=== PATIENT | female | born 1945 | race Caucasian/White ===

== ENCOUNTER 2016-11-28 13:47 | Inpatient (IN) | payer OTHER, BC ==
--- NOTE | 2016-11-28 13:54 | PDOC ---
History of Present Illness - General Chief Complaint: Weakness Stated Complaint: weak,dehydration Time Seen by Provider: 11/28/16 13:48 History Source: Patient, EMS Exam Limitations: No Limitations, Language Barrier - History of Present Illness Initial Comments: 11/28/16 13:49 The patient is a 71-year-old female, with a significant past medical history of cervical cancer (status post TAHBSO, with radiation and chemotherapy approximately 35 years ago at [facility], apparently in remission according to the patient), right sided urostomy in place (placed in 2009 secondary to radiation injury), who presents to the emergency department complaining of generalized weakness. She states that for the past year, she has had relatively frequent episodes of dehydration and diarrhea. She states that this has been extensively worked up at [facility], and she was found to have "two benign tumors in her abdomen" and was told that these are the cause of her episodes. She specifically states that recurrent malignancy was excluded. She had another episode approximately a week ago, and was admitted to [facility] for "dehydration." She was discharged on Wednesday. Since that time, she states that she has been "too weak to get off the couch." She has been urinating and defecating on a blanket, while on the couch. She denies headache, neck pain, neck stiffness, chest pain, back pain, cough, dyspnea, dyspnea on exertion, orthopnea, lower extremity edema. He denies fever, chills, sweats. She denies nausea, vomiting. She denies any change in her chronic loose stools. She denies urinary frequency, urgency, hesitancy, dysuria. She denies rash. She denies falls or trauma. She states that her daughter assists her at home, but has been unable to get her off the couch. EMS states that they found the patient on the couch, without any evidence of trauma, with a strong smell of urine, and visible feces diffusely on her skin. Past History - Past Medical History Allergies/Adverse Reactions: Allergies Allergy/AdvReac Type Severity Reaction Status Date / Time No Known Allergies Allergy Unverified 01/26/12 08:57 Home Medications: Ambulatory Orders NK [No Known Home Medication] 11/28/16 HTN: Yes Hypercholesterolemia: Yes - Psycho/Social/Smoking Cessation Hx Anxiety: No Suicidal Ideation: No Smoking Status: No Smoking History: Never smoked Number of Cigarettes Smoked Daily: 0 Hx Alcohol Use: No Drug/Substance Use Hx: No Substance Use Type: None Review of Systems - Review of Systems Comments:: 11/28/16 13:53 CONSTITUTIONAL: Present: Generalized weakness Absent: fever, chills, diaphoresis HEENT: Absent: rhinorrhea, nasal congestion, throat pain, throat swelling, difficulty swallowing, mouth swelling, ear pain, eye pain, visual Changes CARDIOVASCULAR: Absent: chest pain, loss of consciousness, palpitations, irregular heart rate, peripheral edema RESPIRATORY: Absent: cough, shortness of breath, dyspnea with exertion, orthopnea, wheezing, stridor, hemoptysis GASTROINTESTINAL: Present: Chronic loose stools Absent: abdominal pain, abdominal distension, nausea, vomiting, constipation, melena, hematochezia GENITOURINARY: Absent: dysuria, frequency, urgency, hesitancy, hematuria, flank pain, genital pain MUSCULOSKELETAL: Absent: myalgia, arthralgia, joint swelling SKIN: Absent: rash, itching, pallor HEMATOLOGIC/IMMUNOLOGIC: Absent: easy bleeding, easy bruising, lymphadenopathy, frequent infections ENDOCRINE: Absent: unexplained weight gain, unexplained weight loss, heat intolerance, cold intolerance NEUROLOGIC: Absent: headache, focal weakness or paresthesias, dizziness, unsteady gait, seizure, mental status changes, bladder or bowel incontinence PSYCHIATRIC: Absent: anxiety, depression, suicidal or homicidal ideation, hallucinations. *Physical Exam - Physical Exam Comments: 11/28/16 13:54 GENERAL: Well developed, well nourished. Awake and alert. No acute distress. There is a strong smell of urine on the patient's clothes. HEENT: Dry mucous membranes Normocephalic, atraumatic. PERRLA, EOMI. No conjunctival pallor. Sclera are non- icteric. Moist mucous membranes. Oropharynx is clear. NECK: Supple. Full ROM. No JVD. Carotid pulses 2+ and symmetric, without bruits. No thyromegaly. No lymphadenopathy. CARDIOVASCULAR: Regular rate and rhythm. No murmurs, rubs, or gallops. Distal pulses are 2+ and symmetric. PULMONARY: No evidence of respiratory distress. Lungs clear to auscultation bilaterally. No wheezing, rales or rhonchi. ABDOMINAL: Soft. Non-tender. Non-distended. No rebound or guarding. No organomegaly. Normoactive bowel sounds. MUSCULOSKELETAL Normal range of motion at all joints. No bony deformities or tenderness. No CVA tenderness. EXTREMITIES: No cyanosis. No clubbing. No edema. No calf tenderness. SKIN: Delayed skin turgor. Feces is present, diffusely, on the patient's skin, including her hands, and underneath her fingernails. Ostomy bag in place right anterior abdomen Warm and dry. Normal capillary refill. No rashes. No jaundice. NEUROLOGICAL: Alert, awake, appropriate. Cranial nerves 2-12 intact. No deficits to light touch and temperature in face, upper extremities and lower extremities. No motor deficits in the in face, upper extremities and lower extremities. Normoreflexic in the upper and lower extremities. Normal speech. Toes are down- going bilaterally. Gait is normal without ataxia. PSYCHIATRIC: Cooperative. Good eye contact. Appropriate mood and affect. 11/28/16 14:37 Heart Score/ECG Review - ECG Intrepretation Comment:: 11/28/16 14:42 Normal sinus rhythm at 96, normal axis, normal intervals, early R-wave progression, flat T-wave in aVL, occasional premature atrial complexes, no ST changes ED Treatment Course - LABORATORY CBC & Chemistry Diagram: 11/28/16 15:25 11/28/16 15:25 Medical Decision Making - Medical Decision Making 11/28/16 13:54 The patient is in no acute distress She has 1 SIRS criteria: Tachycardia She is cachectic Vitals noted Oxygen saturation is likely not accurate, as the left is poor She is not tachypneic She is not dyspneic There is urine and feces present on her clothes and skin She is visibly dehydrated Will initiate sepsis order set 11/28/16 14:57 Chest x-ray emergency Department interpretation: No acute cardiopulmonary disease Labs pending 11/28/16 15:18 Nurses have been unable to obtain IV access The patient refuses to allow me to attempt to place an external jugular vein IV She refuses central line placement in the internal jugular vein or subclavian vein She consents to femoral vein triple-lumen catheter placement I explained the risks and benefits, and she consents 11/28/16 15:30 Left femoral vein cannulated on first attempt Wire will not thread, despite multiple repositionings She refuses further central line placement attempts Nursing has been able to secure peripheral IV access 11/28/16 16:15 CBC noted, with leukocytosis and left shift She now has two SIRS criteria She does not have an obvious source of infection, so does not meet diagnostic criteria for sepsis 11/28/16 16:26 Chemistries noted There is evidence that the patient cannot be adequately cared for at home, and that she will require placement in a shelter We have been unable to contact her daughter I am concerned that she may be incorrect about her lack of cancer history Blood pressure remains low, though I suspect this is her baseline She states that she has "low blood pressure" at baseline, but cannot recall the actual number 11/28/16 17:13 Lactic acid noted, elevated at 3.7 She does not have an obvious source of infection However, given the leukocytosis, and the borderline blood pressure, will treat with broad-spectrum antibiotics Clinical impression: Dehydration Hyponatremia Failure to thrive Hypoalbuminemia Lactic acidosis SIRS Case discussed with daughter, who verifies that the patient does not have active cervical cancer and that the urostomy tube was placed secondary to "radiation damage." She also verifies that the patient is DNR/DNI. She is the durable power of attorney law clerk. She states that her strong [id number] would be that the patient is discharged to home, in her care. She does not want shelter placement. Case discussed in detail with admitting provider including history, physical exam and ancillary studies. Admitting physician has assumed care for the patient, will follow all pending diagnostics and will complete the evaluation and treatment. A portion of this note was documented by scribe services under my direction. I have reviewed the details of the note, within reason, and agree with the documentation with the following case summary and management plan written by me. 11/28/16 17:19 11/28/16 17:24 *DC/Admit/Observation/Transfer Diagnosis at time of Disposition: Dehydration, Hyponatremia, Lactic acidosis, SIRS (systemic inflammatory response syndrome) - Discharge Dispostion Admit: Yes
[2016-11-28] MEDS ORDERED: SODIUM CHLORIDE 1,000 ML IV STA (13:55)
[2016-11-28 15:57] LABS: BASOPHIL 0.3 % (0-2.0); EOSINOPHIL 0.1 % (0-4.5); MCH 24.8 pg (25.7-33.7); MCHC 32.1 g/dl (32.0-36.0); MEAN CELL VOLUME 77.3 fl (80-96); NEUTROPHILS 85.5 % (42.8-82.8); RDW 17.4 % (11.6-15.6); WHITE BLOOD COUNT 14.4 K/mm3 (4.0-10.0)
[2016-11-28 16:05] LABS: ACTIVATED PTT 17.4 SECONDS (24.0-38.9)
[2016-11-28 16:10] LABS: INR 1.27 (0.82-1.09); PROTHROMBIN TIME (PATIENT) 13.8 SEC (10.2-13.0)
[2016-11-28 16:21] LABS: BILIRUBIN,TOTAL 0.5 mg/dl (0.2-1.0); CALCIUM 8.3 mg/dl (8.4-10.2); CREATININE 2.1 mg/dl (0.6-1.3); TOT PROT 6.9 g/dl (6.4-8.3)
[2016-11-28 17:12] LABS: MEAN PLT VOLUME 6.4 fl (7.5-11.1); PLATELET COUNT 664 K/MM3 (134-434); PLATELET ESTIMATE MARKEDLY INCREASED (NORMAL); THYROID STIMULATING HORMONE 2.42 uIU/ml (0.358-3.74)
[2016-11-28] MEDS ORDERED: PIPERACILLIN/TAZOB 4.5 GM 4.5 GM in DEXTROSE 5%-WATER 100 ML IVPB ONE (17:13)
[2016-11-28] MEDS ORDERED: VANCOMYCIN 1,000 MG in DEXTROSE 5%-WATER - 250 ML IVPB ONE (17:13)
[2016-11-28 17:15] LABS: ANISOCYTOSIS 1+; HYPOCHROMIA 1+; MICROCYTOSIS 1+; OVALOCYTES 1+; TEAR DROP CELLS OCC
[2016-11-28] MEDS ORDERED: SODIUM CHLORIDE 1,000 ML IV SCH ×2 (17:15→18:00)
[2016-11-28 17:16] LABS: BURR CELLS 1+; PLATELET COMMENT2 FEW GIANT PLTS
[2016-11-28 18:25] LABS: URINE APPEARANCE Not
[2016-11-28 18:27] LABS: URINE BILIRUBIN Negative (NEGATIVE); URINE BLOOD 2+ (NEGATIVE); URINE COLOR YELLOW; URINE GLUCOSE (UA) Negative (NEGATIVE); URINE KETONE Negative (NEGATIVE); URINE LEUK ESTERASE 3+ (NEGATIVE); URINE NITRITE Negative (NEGATIVE); URINE PROTEIN 3+ (NEGATIVE); URINE UROBILINOGEN 0.2 E.U/dl (0.2-1.0)
--- NOTE | 2016-11-28 19:30 | HP ---
Admitting History and Physical - Admission Chief Complaint: failure to thrive History of Present Illness: The patient is a 71-year-old female, with a significant past medical history of cervical cancer (status post TAHBSO, with radiation and chemotherapy approximately 35 years ago at [facility], apparently in remission according to the patient), right sided urostomy in place (placed in 2009 secondary to radiation injury), who presents to the emergency department complaining of generalized weakness. Pt was brought to [facility] per documentation by daughter who found patient covered in her feces and weak. Pt states she is unsure why she is in the hospital. Patient reports she has been to the hospital several times over the past 2 months and had a recent visit to [facility] 3days ago where she reports getting "Saline" for dehydration. She also reports having poor appetite and unspecified weight loss. She states she has been having seepage of stool for several months and reports being told by her oncologist that it was related to her history of cancer. Per documentation patient states she has had extensive work up at [facility] and recurrent malignancy was ruled out. She denies fevers, chills, nausea, cough, vomiting,. She denies heart palps, chest pain, dizziness, TRAN, abdominal pain. She reports sob with activities which has been ongoing for months. She denies recent travel or sick contacts. PMH/PSH-Hypertension, Hyperlipidemia, Cervical cancer, Vitamin B12 deficiency, R sided urostomy Social: lives with daughter Alexx- unable to obtain secondary to uncooperative Ros negative except for hpi Physical: general- thin, bitemp wasting, hent- sandra, neck supple, trachea midline, no lymphadenopathy, mucous membranes dry resp- no cough, no rales, no wheeze, no accessory muscle use cards- s1s2 heard, no leg edema, extremity pulses +2 skin- no erythema, no rash psych- uncooperative, alert and oriented neuro- cn12-2 grossly intact, alert and oriented x 3, no seizures, no facial droop, speech clear musk- normal arom bue/ble gi- R sided urostomy with clear patria urine in bag, non- tender, no rebound, no guarding Problem list uti sirs criteria sepsis hyponatremia hypoalbuminemia thrombocytosis hyperglycemia anemia weakness failure to thrive lactic acidosis nany on ckd htn hlp imaging: renal us pending cxr negative ekg reviewed a/p 71-year-old female, with a significant past medical history of htn, vitamin b12 deficiency, hlp, cervical cancer (status post TAHBSO, with radiation and chemotherapy approximately 35 years ago at [facility], apparently in remission according to the patient), right sided urostomy in place (placed in 2009 secondary to radiation injury) admitted for eval of their emergent condition. She was transferred from [place] to [facility] for higher LOC. 1. UTI started on broad spectrum abx follow up cultures ID consult 2. Sepsis secondary to uti Found to have 3+ LE, 3 +Protein, 2+ H Lactic acid elevated to 3.7 Fluid resuscitation, broad spec abx Cautious with fluids with diastolic dysfunction grade II Trend lactic acidosis 3. Failure to thrive nutrition evaluation PT evaluation Supportive care 4. Anemia baseline hg appears to hover around 9 Check iron studies, tsh, folate, b12, fobt 5. Thrombocytosis possibly reactive in setting of infection v dehydration appears to have chronic elevation of plt Monitor Plt 6. Hypoalbuminemia Nutritional eval 7. Weakness likely related to #1 8. Hyperglycemia possibly related to infection Monitor BMP Check A1c 9. NANY on CKD baseline appears to be 1.5-1.6 check urine lytes renal us 10. Hyponatremia likely related to volume depletion Appears dehydrated on exam Monitor labs 11. hx htn no home meds noted 12. hx hlp no home meds noted Dvt prophy scds, oob, hep sq FEN NS 75cc/hr cautious with ivf 2/2 diastolic dysfunction dispo- will require > 2mn stay for sepsis. will possibly need SNF placement. History Source: Medical Record - Smoking History Smoking history: Never smoked Have you smoked in the past 12 months: No Aproximately how many cigarettes per day: 0 - Alcohol/Substance Use Hx Alcohol Use: No Home Medications - Allergies Allergies/Adverse Reactions: Allergies Allergy/AdvReac Type Severity Reaction Status Date / Time No Known Allergies Allergy Unverified 01/26/12 08:57 - Home Medications Home Medications: Ambulatory Orders NK [No Known Home Medication] 11/28/16 Physical Examination Vital Signs: Vital Signs Temperature 98.7 F 11/28/16 18:38 Pulse Rate 88 11/28/16 18:38 Respiratory Rate 16 11/28/16 18:38 Blood Pressure 110/76 11/28/16 18:38 O2 Sat by Pulse Oximetry (%) 94 L 11/28/16 18:38 Labs: CBC, BMP 11/28/16 15:25 11/28/16 15:25 Visit type - Emergency Visit Emergency Visit: Yes ED Registration Date: 11/28/16 Care time: The patient presented to the Emergency Department on the above date and was hospitalized for further evaluation of their emergent condition. - New Patient This patient is new to me today: Yes Date on this admission: 11/29/16 - Critical Care Critical Care patient: Yes Total Critical Care Time (in minutes): 60 Critical Care Statement: The care of this patient involved high complexity decision making to prevent further life threatening deterioration of the patient 's condition and/or to evalute & treat vital organ system(s) failure or risk of failure.
[2016-11-28 19:54] LABS: URINE APPEARANCE Cloudy; URINE BILIRUBIN Negative (NEGATIVE); URINE GLUCOSE (UA) Negative (NEGATIVE); URINE KETONE Negative (NEGATIVE); URINE NITRITE Negative (NEGATIVE); URINE UROBILINOGEN 0.2 E.U/dl (0.2-1.0)
[2016-11-28 19:55] LABS: URINE BLOOD 2+ (NEGATIVE); URINE COLOR YELLOW; URINE LEUK ESTERASE 3+ (NEGATIVE); URINE PROTEIN 2+ (NEGATIVE)
[2016-11-28 20:18] LABS: URINE BACTERIA FEW /hpf (NEGATIVE); URINE WBC 50-80 (3-5)
--- NOTE | 2016-11-28 21:13 | CONSULT ---
Consult - text type - Consultation Consultation Note: PULM/CCM Consult CC: failure to thrive, SIRS HPI: Ms Valiente is a pleasant 71-year-old female, with past medical history significant for cervical cancer (status post TAHBSO, with radiation and chemotherapy approximately 35 years ago at [facility], apparently in remission according to the patient), a right sided urostomy in place (placed in 2009 secondary to radiation injury), who presented to [place] ED today complaining of generalized weakness. She states that for the past year, she has had relatively frequent episodes of dehydration and diarrhea. Per her report her diarrhea has been extensively worked up at [facility] which was unrevealing for infectious or secretory process. During that work up she was found to have " two benign tumors in her abdomen" and was told that these may be a cause. She specifically states that recurrent malignancy was excluded. She had a brief hospitalization for "dehydration" and was discharged on Wednesday. Although she is cared for by her daughter she has apparently been "too weak to get off the couch." She has not been managing her ostomy and defecating on a blanket, while on the couch. EMS states that they found the patient on the couch, without any evidence of trauma, with a strong smell of urine, and visible feces diffusely on her skin. Pt denies headache, neck pain, neck stiffness, chest pain, back pain, cough, dyspnea, dyspnea on exertion, orthopnea, lower extremity edema, fever, chills, sweats.Denies nausea, vomiting. Relates stooling is chronic and unchanged. In [facility] ED pt was normothermic, BP 100/60, HR 90s, RR 16. Labs notable for WBC 14K L shift, thrombocytosis (chronic), non-gap acidosis w/HCO3 13 and Cl 108 c/ w dehydration. Her Lactate was 3.7, Cr 2.1. UA was dirty 50 Wbc, 3+ LE. Pt was started on broad spectrum abx (vanc/PT). She was volume resusitated. Due to very poor access a central line was attempted but unsucessful. Pt refused further attempts. Lactate trended down to 1.7 with fluid. Mental status intact. Physical exam notable for very dry skin with significant poor turgor, she was covered with loose yellow feces. She is frail and weak. She has slight bitemporal wasting and very little lean muscle. She has lost ~ 15lbs in last 6 months. She states she has very little appetite. Pt was transferred from [facility] without incident. CBC, BMP 11/28/16 15:25 11/28/16 15:25 Vital Signs Temp 98.7 F 11/28/16 19:43 Pulse 91 H 11/28/16 19:43 Resp 16 11/28/16 19:43 BP 107/67 11/28/16 19:43 Pulse Ox 91 L 11/28/16 19:43 Intake & Output 11/27/16 11/28/16 11/28/16 23:59 11:59 23:59 Weight 39.916 kg Other: Height 5 ft 3 in Body Mass Index (BMI) 15.5 Weight Measurement Method Estimated by Staff Medication Instructions Recorded NK [No Known Home Medication] 11/28/16 Previously on Norvasc, Lipitor and Metoprolol....stopped some months ago by PMD given borderline BP and poor PO intake. Active Medications Chlorhexidine Gluconate (Hibiclens For Decolonization -) 1 applic TP HS MIKE Heparin Sodium (Porcine) (Heparin -) 5,000 unit SQ BID MIKE Sodium Chloride (Normal Saline -) 1,000 mls @ 125 mls/hr IV ASDIR MIKE Last Admin: 11/28/16 17:17 Dose: 125 mls/hr Sodium Chloride (Normal Saline -) 1,000 mls @ 125 mls/hr IV ASDIR MIKE Last Admin: 11/28/16 20:10 Dose: 125 mls/hr Vancomycin HCl (Vancomycin (Pre-Docked)) 250 mls @ 150 mls/hr IVPB ONCE ONE Stop: 11/29/16 11:39 Piperacillin Sod/Tazobactam Sod (Zosyn 2.25gm Ivpb (Pre-Docked)) 50 mls @ 100 mls/hr IVPB ONCE ONE Stop: 11/29/16 02:29 Sodium Chloride (Normal Saline -) 1,000 mls @ 75 mls/hr IV ASDIR MIKE Piperacillin Sod/Tazobactam Sod (Zosyn 2.25gm Ivpb (Pre-Docked)) 50 mls @ 100 mls/hr IVPB Q8H-IV MIKE Mupirocin (Bactroban Ointment (For Decolonization) -) 1 applic NS BID MIKE Stop: 12/03/16 21:59 PM/S HX -cervical CA -urinary obstruction with recurrent UTI, s/p urostomy 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 Lives with daughter. ROS: as per HPI pt doesnt elaborate and relates no new symptoms except for weakness PE: Awake alert, conversant woman INAD NEURO: non focal, CN II-XII grossly intact HEENT: EOMI, PERRL PULM: clear anterior, no wheezes CV: slightly tachy at 108, no m/r/g appreciated ABD: urostomy with bag intact,draining slightly cloudy urine, soft, NT, unable to palpate masses EXT: no edema, thin. 2+ pulses Back: DT injury on R buttock, Stage 2 (1x2cm) at sacrum, Stage I L buttock EKG: Normal sinus rhythm at 96, normal axis, normal intervals, early R-wave progression, flat T-wave in aVL, occasional premature atrial complexes, no ST changes CXR: clear, no infiltrate or mass A/ 71 y/o woman with failure to thrive, weakness. Sent in to ED by daughter as pt unable to get off couch/care for self. Found to have NAGMA, possible sepsis ( leukocytosis, tachycardia, lactic acidosis), likely from UTI though dirty UA possibly chronic. Improved with volume resusitation P/ -broad spectrum abx -Vanco by level and PT -volume resusitation -trend lactate and Cr (appears baseline about 1.6) -may benefit from PO Hco3 if does respond to volume/sepsis treatment -plts likely reactive, follow. no indication for heme consult -nutrition consult -social work consult -wound consult -regular diet -SQH Dvt prophy -to floor in am if remains stable. Jin Cornejo ANCP [id number] 35m CCT
[2016-11-28 21:28] VITALS: BMI 17.4
[2016-11-28] MEDS: SODIUM CHLORIDE 1,000 ML IV SCH (21:51)
[2016-11-28] MEDS: MUPIROCIN 2% TOPICAL OINTMENT FOR DECOLONIZATION NS SCH (21:51)
[2016-11-28] MEDS: CHLORHEXIDINE GLUCONATE 4% CLEANSER FOR DECOLONIZATION TP SCH (21:52)
[2016-11-29] MEDS ORDERED: PIPERACILLIN/TAZOB 2.25 GM 50 ML IVPB ONE ×2 (02:00→03:00)
[2016-11-29] MEDS ORDERED: SODIUM CHLORIDE 250 ML IV STA (03:11)
[2016-11-29 06:04] LABS: EOSINOPHIL 0.3 % (0-4.5); MCH 24.4 pg (25.7-33.7); MCHC 30.9 g/dl (32.0-36.0); MEAN CELL VOLUME 79.1 fl (80-96); MEAN PLT VOLUME 6.6 fl (7.5-11.1); NEUTROPHILS 75.2 % (42.8-82.8); PLATELET COUNT 371 K/MM3 (134-434); RDW 18.2 % (11.6-15.6); WHITE BLOOD COUNT 7.6 K/mm3 (4.0-10.0)
[2016-11-29 06:38] LABS: FERRITIN 565.267 ng/ml (6.9-282.5)
[2016-11-29 06:39] LABS: ALBUMIN 1.5 g/dl (3.4-5.0); CALCIUM 7.1 mg/dL (8.5-10.1); CREATININE 1.9 mg/dL (0.55-1.02); MAGNESIUM 1.4 mg/dL (1.8-2.4); PHOSPHOROUS 3.7 mg/dL (2.5-4.9)
[2016-11-29 06:44] LABS: BILIRUBIN,TOTAL 0.3 mg/dL (0.2-1.0); TOT PROT 5.6 g/dl (6.4-8.2)
--- NOTE | 2016-11-29 09:00 | PN ---
Progress Note (short form) - Note Progress Note: PULM/CCM Pt seen and examined in ICU 24Hr: VS stable overnight wbc down trending Cr down trending Hco3 same Vital Signs Temp 97.4 F L 11/29/16 06:00 Pulse 74 11/29/16 06:00 Resp 18 11/29/16 08:46 BP 106/72 11/29/16 06:00 Pulse Ox 94 L 11/29/16 08:46 Intake & Output 11/28/16 11/28/16 11/29/16 11:59 23:59 11:59 Intake Total 350 850 Output Total 200 300 Balance 150 550 Weight 40.511 kg 39.037 kg Intake: IV 350 700 Normal Saline - 1,000 ml 125 @ 125 mls/hr IV ASDIR MIKE Rx#:[id number] Normal Saline - 1,000 ml 225 450 @ 75 mls/hr IV ASDIR MIKE Rx#:[id number] Normal Saline - 250 ml @ 250 500 mls/hr IV ASDIR STA Rx#:[id number] IVPB 50 Oral 100 Output: Urine 200 300 Right Nephrostomy 200 300 Other: Height 5 ft Body Mass Index (BMI) 17.4 Weight Measurement Method [facility] Weight Measurement Method Estimated by Staff SUMA, CONI 11/29/16 05:15 11/29/16 05:15 Active Medications Chlorhexidine Gluconate (Hibiclens For Decolonization -) 1 applic TP HS MIKE Last Admin: 11/28/16 21:52 Dose: 1 applic Heparin Sodium (Porcine) (Heparin -) 5,000 unit SQ BID MIKE Vancomycin HCl (Vancomycin (Pre-Docked)) 250 mls @ 150 mls/hr IVPB ONCE ONE Stop: 11/29/16 11:39 Sodium Chloride (Normal Saline -) 1,000 mls @ 75 mls/hr IV ASDIR MIKE Last Admin: 11/28/16 21:51 Dose: 75 mls/hr Piperacillin Sod/Tazobactam Sod (Zosyn 2.25gm Ivpb (Pre-Docked)) 50 mls @ 100 mls/hr IVPB Q8H-IV MIKE Mupirocin (Bactroban Ointment (For Decolonization) -) 1 applic NS BID MIKE Stop: 12/03/16 21:59 Last Admin: 11/28/16 21:51 Dose: 1 applic PE: Awake alert, conversant woman INAD NEURO: non focal, CN II-XII grossly intact HEENT: EOMI, PERRL PULM: clear anterior, no wheezes CV: slightly tachy at 108, no m/r/g appreciated ABD: urostomy with bag intact,draining slightly cloudy urine, soft, NT, unable to palpate masses EXT: no edema, thin. 2+ pulses Back: DT injury on R buttock, Stage 2 (1x2cm) at sacrum, Stage I L buttock EKG: Normal sinus rhythm at 96, normal axis, normal intervals, early R-wave progression, flat T-wave in aVL, occasional premature atrial complexes, no ST changes CXR: clear, no infiltrate or mass A/ 71 y/o woman with failure to thrive, weakness. Sent in to ED by daughter as pt unable to get off couch/care for self. Found to have NAGMA, possible sepsis ( leukocytosis, tachycardia, lactic acidosis), likely from UTI though dirty UA possibly chronic. Improved with volume resusitation P/ -broad spectrum abx, cont Vanc and PT -Vanco by level and PT -volume resusitation -trend lactate and Cr (appears baseline about 1.6) -may benefit from PO Hco3 if does respond to volume/sepsis treatment -plts likely reactive, follow. no indication for heme consult -nutrition consult -social work consult, may benefit from home health aid vs NH placement -wound consult -regular diet -SQH Dvt prophy -Ok for floor bed today Jin Cornejo [facility] [id number]
[2016-11-29 09:49] LABS: THYROID STIMULATING HORMONE 1.87 uIU/ml (0.358-3.74)
[2016-11-29] MEDS ORDERED: VANCOMYCIN 1 GRAM (PRE-DOCKED) 250 ML IVPB ONE (10:00)
[2016-11-29] MEDS ORDERED: HEPARIN NA (PORCINE) 5,000 UNITS/ML 1ML VIAL SQ SCH (10:00)
[2016-11-29] MEDS ORDERED: PIPERACILLIN/TAZOB 2.25 GM 50 ML IVPB SCH (10:00)
[2016-11-29] MEDS: MUPIROCIN 2% TOPICAL OINTMENT FOR DECOLONIZATION NS SCH ×2 (11:33→21:15)
--- NOTE | 2016-11-29 16:40 | CONSULT ---
Consult Consult Specialty:: infectious diseases Reason for Consultation:: bacteremia,dehydration,lactic acidosis - History of Present Illness Chief Complaint: i was dehydrated History of Present Illness: 71-year-old female, with a significant past medical history of cervical cancer ( status post TAHBSO, with radiation and chemotherapy approximately 35 years ago at [facility], apparently in remission according to the patient), right sided urostomy in place (placed in 2009 secondary to radiation injury), who presents to the emergency department complaining of generalized weakness. Pt was brought to [facility] per documentation by daughter who found patient covered in her feces and weak. Pt states she is unsure why she is in the hospital. Patient reports she has been to the hospital several times over the past 2 months and had a recent visit to [facility] 3days ago where she reports getting "Saline" for dehydration. She also reports having poor appetite and unspecified weight loss. She states she has been having seepage of stool for several months and reports being told by her oncologist that it was related to her history of cancer. Per documentation patient states she has had extensive work up at [facility] and recurrent malignancy was ruled out. She denies fevers, chills, nausea, cough, vomiting,. She denies heart palps, chest pain, dizziness, TRAN, abdominal pain. She reports sob with activities which has been ongoing for months. She denies recent travel or sick contacts. patient not able to give me any specific history and the above hsitory taken from the charts. patient is awake and alert and she mentions to me that she has got frequent dehydration and has been admitted and has been treated for the same she is awake and alert and able to tell me lot of things but not what really happened this time except that she thinks she was dehydrated and was brought here currently patient feels very weak but mentally she does feel better - History Source History Provided By: Medical Record Limitations to Obtaining History: Poor Historian - Past Medical History ...: No - Alcohol/Substance Use Hx Alcohol Use: No - Smoking History Smoking history: Never smoked Have you smoked in the past 12 months: No Aproximately how many cigarettes per day: 0 Home Medications - Allergies Allergies/Adverse Reactions: Allergies Allergy/AdvReac Type Severity Reaction Status Date / Time No Known Allergies Allergy Unverified 01/26/12 08:57 - Home Medications Home Medications: Ambulatory Orders NK [No Known Home Medication] 11/28/16 Review of Systems - Review of Systems Constitutional: reports: Weakness Eyes: reports: No Symptoms HENT: reports: No Symptoms Neck: reports: No Symptoms Cardiovascular: reports: No Symptoms Respiratory: reports: No Symptoms Gastrointestinal: reports: No Symptoms Genitourinary: reports: No Symptoms Musculoskeletal: reports: No Symptoms Integumentary: reports: No Symptoms Neurological: reports: No Symptoms Endocrine: reports: No Symptoms Hematology/Lymphatic: reports: No Symptoms Psychiatric: reports: No Symptoms Physical Exam Vital Signs: Vital Signs Temperature 97.4 F L 11/29/16 06:00 Pulse Rate 83 11/29/16 14:00 Respiratory Rate 19 11/29/16 14:00 Blood Pressure 103/70 11/29/16 14:00 O2 Sat by Pulse Oximetry (%) 94 L 11/29/16 08:46 Constitutional: Yes: No Distress, Calm, Thin Eyes: Yes: Conjunctiva Clear HENT: Yes: Atraumatic Neck: Yes: Supple Cardiovascular: Yes: Regular Rate and Rhythm Respiratory: Yes: Regular, CTA Bilaterally Gastrointestinal: Yes: Normal Bowel Sounds, Soft, Other (dirrhoea,dirrhoea, ileostomy) Musculoskeletal: Yes: WNL Extremities: Yes: WNL Integumentary: Yes: WNL Neurological: Yes: Alert, Oriented Psychiatric: Yes: Alert Labs: CBC, BMP 11/29/16 05:15 11/29/16 05:15 Imaging - Results Chest X-ray: Report Reviewed, Image Reviewed Assessment/Plan 71-year-old female, with a significant past medical history of htn, vitamin b12 deficiency, hlp, cervical cancer (status post TAHBSO, with radiation and chemotherapy approximately 35 years ago at [facility], apparently in remission according to the patient), right sided urostomy in place (placed in 2009 secondary to radiation injury) admitted for eval of their emergent condition. She was transferred from [place] to [place] ICU for higher LOC. 1. r/o uti 2. Sepsis 3. Failure to thrive 4. Anemia 5. Thrombocytosis 6. Hypoalbuminemia 7. Weakness 8. Hyperglycemia 9. NANY on CKD 10. Hyponatremia l 11. hx htn lactic acidosis bacteremia plan patient has got one dose of vanco await for cx results to come back vanco level then dosing will hold off on starting any other abx hydration monitoring her electrolytes rest continue as per icu cc time 50 min
--- NOTE | 2016-11-29 17:10 | PN ---
Physical Exam: SUBJECTIVE: Patient seen, refusing my exam. "I am tired, come back tomorrow". Asked her if I can do a quick exam, still refusing. OBJECTIVE: Vital Signs Period Temp Pulse Resp BP Sys/Dillon Pulse Ox Last 24 Hr 97.4 F-97.6 F 70-83 18-25 82-109/43-76 94-94 GENERAL: The patient is awake, alert, and fully oriented - refusing my exam HEAD: Normal with no signs of trauma. LUNGS: refused assessment HEART: Regular rate and rhythm ABDOMEN: refused exam EXTREMITIES: refused exam NEUROLOGICAL: Normal speech, bed bound PSYCH: refusing exam SKIN: unable to assess Laboratory Results - last 24 hr 11/29/16 11/29/16 11/29/16 05:15 05:15 05:15 WBC 7.6 RBC 3.08 L Hgb 7.5 L Hct 24.4 L MCV 79.1 L MCHC 30.9 L RDW 18.2 H Plt Count 371 MPV 6.6 L Neutrophils % 75.2 Lymphocytes % 15.5 Monocytes % 9.0 Eosinophils % 0.3 Basophils % 0.0 Sodium 140 Potassium 3.4 L Chloride 114 H Carbon Dioxide 14 L Anion Gap 12 BUN 26 H Creatinine 1.9 H Creat Clearance w eGFR 25.91 Random Glucose 91 Calcium 7.1 L Phosphorus 3.7 Magnesium 1.4 L Ferritin 565.267 H Total Bilirubin 0.3 AST 13 L ALT 18 Alkaline Phosphatase 53 Total Protein 5.6 L Albumin 1.5 L Vitamin B12 286 Serum Folate 10 TSH 1.87 D 11/29/16 05:34 WBC RBC Hgb Hct MCV MCHC RDW Plt Count MPV Neutrophils % Lymphocytes % Monocytes % Eosinophils % Basophils % Sodium Potassium Chloride Carbon Dioxide Anion Gap BUN Creatinine Creat Clearance w eGFR Random Glucose Calcium Phosphorus Magnesium Ferritin Total Bilirubin AST ALT Alkaline Phosphatase Total Protein Albumin Vitamin B12 Cancelled Serum Folate TSH Cancelled Active Medications Generic Name Dose Route Start Last Admin Trade Name Freq PRN Reason Stop Dose Admin Chlorhexidine Gluconate 1 applic 11/28/16 22:00 11/28/16 21:52 Hibiclens For Decolonization - TP 1 applic HS MIKE Administration Heparin Sodium (Porcine) 5,000 unit 11/29/16 10:00 11/29/16 10:50 Heparin - SQ 5,000 unit BID MIKE Administration Sodium Chloride 1,000 mls @ 75 mls/hr 11/28/16 20:00 11/28/16 21:51 Normal Saline - IV 75 mls/hr ASDIR MIKE Administration Mupirocin 1 applic 11/28/16 22:00 11/29/16 11:33 Bactroban Ointment (For Decolonization) - NS 12/03/16 21:59 1 applic BID MIKE Administration ASSESSMENT/PLAN: This patient is a 71 year old female with a significant past medical history of cervical cancer (s/p TAHBSO, s/p RT and chemotherapy apx 35 years ago). She also has a right sided urostomy as per the medical records. She presented to [facility] ER on 11/28/2016 with generalized weakness after her daughter found her covered in feces at home. As per medical records, pt has a poor appetite with unspecified weight loss. Per documentation she was previously worked up at [facility] for malignancy. On admission she denied fevers, chills, nausea/vomiting, cough, recent travel, chest pain, abdominal pain or dizziness. Today she refused to be examined, she appeared upset, slightly agitated. Assured her I would return tomorrow. ID: Urinary Tract Infection/Sepsis secondary to UTI - acute Assessment/Plan: Lactic acid 3.7 on admission, then normalized to 1.756. Given fluids and started on maintenance fluids of NS @ 75. Received Vancomycin and Zosyn, ID following for continuation of Antibiotic therapy Vanco levels for a.m. 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 Refused skin assessment, will start on Prostat BID Hematology Anemia - most likely chronic Assessment/Plan: Unknown baseline, Hmg/Hct: low at 7.5/24.4, may be dilutional , monitor CBC Will transfuse if < 7, monitor for any signs of bleeding Iron studies pending Repeat CBC Endocrine: Hyperglycemia on admission, now normalizing Assessment/Plan: Monitor BMP Check HbA1c: pending GI: Acute Kidney Injury - acute Assessment/Plan: Monitor BUN/Creatinine, baseline BUN/Creat 16/1.0 Continue IV hydration F.E.N. Fluids: Normal saline 75cc/hr Electrolytes: Potassium 3.4: repleted (2 K riders) Magnesium 1.4: repleted (Mag 1 gram) Prophylaxis: Lovenox 30mg daily Disposition: As per admission note, pt is a DNR/DNI. Daughter is durable power of traffic law attorney. Awaiting paperwork from family. Visit type - Emergency Visit Emergency Visit: Yes ED Registration Date: 11/28/16 Care time: The patient presented to the Emergency Department on the above date and was hospitalized for further evaluation of their emergent condition. - New Patient This patient is new to me today: Yes Date on this admission: 12/08/16 - Critical Care Critical Care patient: No - Discharge Referral Referred to [facility] Med P.C.: No
[2016-11-29] MEDS ORDERED: MAGNESIUM SULF 50% (8.12 MEQ/2 ML-1 GM VIAL) IVPB ONE (17:18)
--- NOTE | 2016-11-29 18:00 | EKG ---
Test Reason : Blood Pressure : / mmHG Vent. Rate : 095 BPM Atrial Rate : 095 BPM P-R Int : 148 ms QRS Dur : 076 ms QT Int : 354 ms P-R-T Axes : 070 018 079 degrees QTc Int : 444 ms POOR DATA QUALITY, INTERPRETATION MAY BE ADVERSELY AFFECTED SINUS RHYTHM WITH PREMATURE ATRIAL COMPLEXES NONSPECIFIC ST ABNORMALITY WHEN COMPARED WITH ECG OF 08-JAN-2015 09:27, PREMATURE ATRIAL COMPLEXES ARE NOW PRESENT Confirmed by MD OBRIEN MARJORY ([id number]) on 11/29/2016 6:00:25 PM Referred By: CHRISTY PERSAUD Overread By: TODD OBRIEN MD
[2016-11-29] MEDS: KCL 10 MEQ IVPB 100 ML IVPB SCH ×2 (18:13→20:49)
[2016-11-29] MEDS: SODIUM CHLORIDE 1,000 ML IV SCH (20:47)
[2016-11-29] MEDS: ENOXAPARIN NA (PORCINE) 30 MG/0.3 ML DISP.SYRIN SQ SCH (21:16)
[2016-11-29] MEDS ORDERED: ENOXAPARIN NA (PORCINE) 30 MG/0.3 ML DISP.SYRIN SQ SCH (22:00)
[2016-11-29] MEDS: CHLORHEXIDINE GLUCONATE 4% CLEANSER FOR DECOLONIZATION TP SCH (22:44)
[2016-11-30] MEDS: SODIUM CHLORIDE 1,000 ML IV SCH ×2 (05:46→20:00)
[2016-11-30 07:38] LABS: BASOPHIL 0.1 % (0-2.0); EOSINOPHIL 0.9 % (0-4.5); MCH 25.2 pg (25.7-33.7); MCHC 31.3 g/dl (32.0-36.0); MEAN CELL VOLUME 80.6 fl (80-96); MEAN PLT VOLUME 6.4 fl (7.5-11.1); NEUTROPHILS 72.3 % (42.8-82.8); PLATELET COUNT 353 K/MM3 (134-434); RDW 18.6 % (11.6-15.6); WHITE BLOOD COUNT 7.7 K/mm3 (4.0-10.0)
[2016-11-30] MEDS: AMINO ACIDS/PROTEIN HYDROLYS SUGAR-FREE 30 ML PACKET PO SCH ×2 (08:08→18:12)
[2016-11-30 08:34] LABS: ALBUMIN 1.5 g/dl (3.4-5.0); BILIRUBIN,TOTAL 0.2 mg/dL (0.2-1.0); CALCIUM 7.2 mg/dL (8.5-10.1); CREATININE 1.9 mg/dL (0.55-1.02); MAGNESIUM 1.7 mg/dL (1.8-2.4); TOT PROT 5.6 g/dl (6.4-8.2)
[2016-11-30] MEDS ORDERED: PANTOPRAZOLE SODIUM 100 ML IVPB SCH (10:00)
[2016-11-30] MEDS ORDERED: MULTIVITAMINS (DAILY MVI) TABLET (FP) PO SCH (10:00)
[2016-11-30] MEDS: MUPIROCIN 2% TOPICAL OINTMENT FOR DECOLONIZATION NS SCH ×2 (10:14→22:28)
[2016-11-30] MEDS: FOLIC ACID 1 MG TABLET (FP) PO SCH (10:27)
[2016-11-30] MEDS: PANTOPRAZOLE 40 MG TABLET (FP) PO SCH (10:27)
[2016-11-30] MEDS ORDERED: MAGNESIUM SULF 50% (8.12 MEQ/2 ML-1 GM VIAL) IVPB ONE (10:45)
[2016-11-30 14:08] LABS: SERUM IRON 9 ug/dL (27-139); TOTAL IRON BINDING CAPACITY 103 ug/dL (250-450); UIBC 94 ug/dL (118-369)
[2016-11-30] MEDS ORDERED: SODIUM CHLORIDE 500 ML IV STA ×2 (15:05→18:09)
[2016-11-30] MEDS ORDERED: PIPERACILLIN/TAZOB 3.375 GM 3.375 GM in DEXTROSE 5%-WATER - 50 ML IVPB ONE (15:17)
[2016-11-30] MEDS ORDERED: PIPERACILLIN/TAZOB 3.375 GM/50 ML PRE-DOCKED IVPB ONE (15:30)
[2016-11-30 17:13] LABS: MCHC 30.1 g/dl (32.0-36.0); MEAN CELL VOLUME 79.7 fl (80-96); MEAN PLT VOLUME 6.9 fl (7.5-11.1); PLATELET COUNT 422 K/MM3 (134-434); RDW 18.6 % (11.6-15.6); WHITE BLOOD COUNT 11.1 K/mm3 (4.0-10.0)
[2016-11-30 17:34] LABS: ALBUMIN 1.5 g/dl (3.4-5.0); BILIRUBIN,TOTAL 0.2 mg/dL (0.2-1.0); CALCIUM 7.2 mg/dL (8.5-10.1); CREATININE 1.9 mg/dL (0.55-1.02); TOT PROT 5.8 g/dl (6.4-8.2)
--- NOTE | 2016-11-30 17:42 | PN ---
Physical Exam: SUBJECTIVE: Patient seen and examined but patient was reluctant to let me examine her. She refused further examination of her sacrum. OBJECTIVE: GENERAL: The patient is awake, alert, and fully oriented - allowing me to examine her but briefly HEAD: Normal with no signs of trauma. LUNGS: anterior lung ortega with clear lung sounds HEART: Regular rate and rhythm ABDOMEN: Urostomy intact, abdomen soft, non distended EXTREMITIES: No edema noted on lower ext. peripheral IV on right ankle, removed by senior medical writer. NEUROLOGICAL: Normal speech, bed bound PSYCH: alert, anxious at times, oriented x 3 SKIN: Urostomy on lower abdomen, multiple skin breakdown present on admission but unable to fully assess as pt refused to have Allevyn removed during my exam. As per nursing records: (1) Coccyx with a stage 2 pressure ulcer (1.5cm x 1.5cm) with open skin, min amt of serosang, redness on surrounding area. (2) Left buttock stage 1 pressure ulcer, skin intact with redness, non- blanchable. (3) Right buttocks deep tissue injury (3cm x 2cm) blackened skin noted, intact with redness surrounding area Vital Signs Period Temp Pulse Resp BP Sys/Dillon Pulse Ox Last 24 Hr 97.9 F-98.1 F 75-82 16-21 90-133/60-74 94 Laboratory Results - last 24 hr 11/29/16 11/30/16 11/30/16 05:15 06:20 06:20 WBC 7.7 RBC 2.88 L Hgb 7.3 L Hct 23.2 L MCV 80.6 MCHC 31.3 L RDW 18.6 H Plt Count 353 MPV 6.4 L Neutrophils % 72.3 Lymphocytes % 19.4 D Monocytes % 7.3 Eosinophils % 0.9 D Basophils % 0.1 D Sodium 142 Potassium 3.8 Chloride 118 H Carbon Dioxide 14 L Anion Gap 10 BUN 21 H Creatinine 1.9 H Creat Clearance w eGFR 25.91 Random Glucose 92 Calcium 7.2 L Magnesium 1.7 L D Iron 9 L TIBC 103 L Iron Saturation 9 L Total Bilirubin 0.2 D AST 18 D ALT 19 Alkaline Phosphatase 57 Total Protein 5.6 L Albumin 1.5 L Random Vancomycin 21.137 11/30/16 11/30/16 15:40 15:40 WBC 11.1 H D RBC 3.09 L Hgb 7.4 L Hct 24.7 L MCV 79.7 L MCHC 30.1 L RDW 18.6 H Plt Count 422 MPV 6.9 L Neutrophils % Y Lymphocytes % Y Monocytes % Eosinophils % Basophils % Sodium 143 Potassium 3.0 L D Chloride 116 H Carbon Dioxide 14 L Anion Gap 13 BUN 22 H Creatinine 1.9 H Creat Clearance w eGFR 25.91 Random Glucose 134 H D Calcium 7.2 L Magnesium Iron TIBC Iron Saturation Total Bilirubin 0.2 AST 22 D ALT 20 Alkaline Phosphatase 62 Total Protein 5.8 L Albumin 1.5 L Random Vancomycin Active Medications Generic Name Dose Route Start Last Admin Trade Name Freq PRN Reason Stop Dose Admin Amino Acids 30 ml 11/30/16 08:00 11/30/16 08:08 Prostat Sugar-Free Packet - PO 30 ml BID@0800,1730 MIKE Administration Chlorhexidine Gluconate 1 applic 11/28/16 22:00 11/29/16 22:44 Hibiclens For Decolonization - TP Not Given HS MIKE Diphenoxylate HCl/Atropine 1 combo 11/30/16 14:37 Lomotil - PO Q8H PRN DIARRHEA Enoxaparin Sodium 30 mg 11/29/16 21:00 11/29/16 21:16 Lovenox - SQ Not Given HS MIKE Folic Acid 1 mg 11/30/16 10:00 11/30/16 10:27 Folic Acid - PO 1 mg DAILY MIKE Administration Sodium Chloride 1,000 mls @ 75 mls/hr 11/28/16 20:00 11/30/16 05:46 Normal Saline - IV 75 mls/hr ASDIR MIKE Administration Mupirocin 1 applic 11/28/16 22:00 11/30/16 10:14 Bactroban Ointment (For Decolonization) - NS 12/03/16 21:59 Not Given BID MIKE Pantoprazole Sodium 40 mg 11/30/16 10:00 11/30/16 10:27 Protonix - PO 40 mg DAILY MIKE Administration ASSESSMENT/PLAN: This patient is a 71 year old female with a significant past medical history of cervical cancer (s/p TAHBSO, s/p RT and chemotherapy apx 35 years ago). She also has a right sided urostomy as per the medical records. She presented to [facility] ER on 11/28/2016 with generalized weakness after her daughter found her covered in feces and urine at home. As per medical records, pt has a poor appetite with unspecified weight loss. Per documentation she was previously worked up at [facility] for malignancy. On admission she denied fevers, chills, nausea/vomiting, cough, recent travel, chest pain, abdominal pain or dizziness. Today she reluctantly allowed me to examine her but only briefly. She appears fearful and anxious. Assured her I want to examine her wounds so that we can treat them accordingly. She asked me to be quick and not to bother her too much. ID: Urinary Tract Infection/Sepsis secondary to UTI - acute Assessment/Plan: Lactic acid 3.7 on admission, then normalized to 1.756. Given fluids and started on maintenance fluids of NS @ 75. 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 Hematology Anemia - most likely chronic Assessment/Plan: Unknown baseline, Hmg/Hct: still low at 7.4/24.7 Will transfuse if < 7, monitor for any signs of bleeding Endocrine: Hyperglycemia on admission, now normalizing Assessment/Plan: Monitor BMP Check HbA1c: pending GI: Acute Kidney Injury - acute Assessment/Plan: Monitor BUN/Creatinine, baseline BUN/Creat 16/1.0 Continue IV hydration F.E.N. Fluids: Normal saline 75cc/hr Electrolytes: Potassium 3.8: Magnesium 1.7: repleted Prophylaxis: Lovenox 30mg daily Disposition: Patient signed a DNR/DNI order in my presence. DNR/DNI order placed. Visit type - Emergency Visit Emergency Visit: Yes ED Registration Date: 11/28/16 Care time: The patient presented to the Emergency Department on the above date and was hospitalized for further evaluation of their emergent condition. - New Patient This patient is new to me today: No - Critical Care Critical Care patient: No - Discharge Referral Referred to [facility] Med P.C.: No
[2016-11-30 17:57] LABS: PLATELET ESTIMATE ADEQUATE (NORMAL)
[2016-11-30] MEDS: CHLORHEXIDINE GLUCONATE 4% CLEANSER FOR DECOLONIZATION TP SCH (22:28)
[2016-11-30] MEDS: ENOXAPARIN NA (PORCINE) 30 MG/0.3 ML DISP.SYRIN SQ SCH (22:28)
[2016-12-01] MEDS: DIPHENOXYLATE 2.5/ATROPINE.025 1 COMBO TABLET PO PRN ×2 (01:42→18:23)
[2016-12-01] MEDS: SODIUM CHLORIDE 1,000 ML IV SCH (06:30)
[2016-12-01 07:15] LABS: BASOPHIL 0.1 % (0-2.0); EOSINOPHIL 0.1 % (0-4.5); MCH 25.2 pg (25.7-33.7); MCHC 31.2 g/dl (32.0-36.0); MEAN CELL VOLUME 80.5 fl (80-96); MEAN PLT VOLUME 6.8 fl (7.5-11.1); NEUTROPHILS 89.3 % (42.8-82.8); PLATELET COUNT 311 K/MM3 (134-434); RDW 18.5 % (11.6-15.6); WHITE BLOOD COUNT 10.6 K/mm3 (4.0-10.0)
[2016-12-01 07:43] LABS: ALBUMIN 1.3 g/dl (3.4-5.0); BILIRUBIN,TOTAL 0.3 mg/dL (0.2-1.0); CALCIUM 7.2 mg/dL (8.5-10.1); MAGNESIUM 1.8 mg/dL (1.8-2.4); TOT PROT 4.9 g/dl (6.4-8.2)
[2016-12-01] MEDS: AMINO ACIDS/PROTEIN HYDROLYS SUGAR-FREE 30 ML PACKET PO SCH ×2 (07:56→18:23)
[2016-12-01] MEDS: KCL 10 MEQ IVPB 100 ML IVPB SCH ×2 (08:47→09:50)
[2016-12-01] MEDS: PANTOPRAZOLE 40 MG TABLET (FP) PO SCH (08:59)
[2016-12-01] MEDS: MUPIROCIN 2% TOPICAL OINTMENT FOR DECOLONIZATION NS SCH ×2 (08:59→21:41)
[2016-12-01] MEDS: FOLIC ACID 1 MG TABLET (FP) PO SCH (08:59)
[2016-12-01] MEDS: POTASSIUM CHLORIDE 10 MEQ in SODIUM CHLORIDE 1,000 ML IVPB SCH ×2 (09:50→22:38)
--- NOTE | 2016-12-01 11:17 | PN ---
Progress Note (short form) - Note Progress Note: Confused and agitated. Refusing care and to be examined. Intake & Output 11/28/16 11/29/16 11/30/16 12/01/16 23:59 23:59 23:59 23:59 Intake Total 350 1900 2495 900 Output Total 200 600 330 450 Balance 150 1300 2165 450 Weight 89 lb 5 oz 86 lb 1 oz Last Vital Signs Temp Pulse Resp BP Pulse Ox 97.4 F L 68 19 110/59 99 12/01/16 07:56 12/01/16 07:56 12/01/16 07:56 12/01/16 07:56 11/30/16 21:00 Active Medications Amino Acids (Prostat Sugar-Free Packet -) 30 ml PO BID@0800,1730 [facility] Last Admin: 12/01/16 07:56 Dose: 30 ml Chlorhexidine Gluconate (Hibiclens For Decolonization -) 1 applic TP HS [facility] Last Admin: 11/30/16 22:28 Dose: Not Given Diphenoxylate HCl/Atropine (Lomotil -) 1 combo PO Q8H PRN PRN Reason: DIARRHEA Last Admin: 12/01/16 01:42 Dose: 1 combo Enoxaparin Sodium (Lovenox -) 30 mg SQ HS [facility] Last Admin: 11/30/16 22:28 Dose: 30 mg Folic Acid (Folic Acid -) 1 mg PO DAILY [facility] Last Admin: 12/01/16 08:59 Dose: 1 mg Potassium Chloride 10 meq/ (Sodium Chloride) 1,005 mls @ 75 mls/hr IVPB Q13H [facility] Last Admin: 12/01/16 09:50 Dose: 75 mls/hr Mupirocin (Bactroban Ointment (For Decolonization) -) 1 applic NS BID [facility] Stop: 12/03/16 21:59 Last Admin: 12/01/16 08:59 Dose: Not Given Pantoprazole Sodium (Protonix -) 40 mg PO DAILY [facility] Last Admin: 12/01/16 08:59 Dose: 40 mg Confused, NAD Refused exam Laboratory Results - last 24 hr 11/29/16 11/29/16 11/30/16 05:15 05:15 15:40 WBC RBC Hgb Hct MCV MCHC RDW Plt Count MPV Neutrophils % Lymphocytes % Monocytes % Eosinophils % Basophils % Band Neutrophils Differential Comment Platelet Estimate Platelet Comment Morphology Comment Sodium Potassium Chloride Carbon Dioxide Anion Gap BUN Creatinine Creat Clearance w eGFR Random Glucose Hemoglobin A1c % 5.0 Lactic Acid 2.412 H* Calcium Magnesium Iron 9 L TIBC 103 L Iron Saturation 9 L Total Bilirubin AST ALT Alkaline Phosphatase Total Protein Albumin Blood Type Crossmatch 11/30/16 11/30/16 11/30/16 15:40 15:40 21:30 WBC 11.1 H D RBC 3.09 L Hgb 7.4 L Hct 24.7 L MCV 79.7 L MCHC 30.1 L RDW 18.6 H Plt Count 422 MPV 6.9 L Neutrophils % 87.0 H D Lymphocytes % 4.0 L D Monocytes % 2.0 L Eosinophils % Basophils % Band Neutrophils 7.0 Differential Comment Manual diff done Platelet Estimate Adequate Platelet Comment Rare giant plts Morphology Comment Slide scanned Sodium 143 Potassium 3.0 L D Chloride 116 H Carbon Dioxide 14 L Anion Gap 13 BUN 22 H Creatinine 1.9 H Creat Clearance w eGFR 25.91 Random Glucose 134 H D Hemoglobin A1c % Lactic Acid 1.598 Calcium 7.2 L Magnesium Iron TIBC Iron Saturation Total Bilirubin 0.2 AST 22 D ALT 20 Alkaline Phosphatase 62 Total Protein 5.8 L Albumin 1.5 L Blood Type Crossmatch 12/01/16 12/01/16 12/01/16 06:00 06:00 08:05 WBC 10.6 H RBC 2.66 L Hgb 6.7 L* Hct 21.4 L MCV 80.5 MCHC 31.2 L RDW 18.5 H Plt Count 311 D MPV 6.8 L Neutrophils % 89.3 H Lymphocytes % 6.7 L D Monocytes % 3.8 D Eosinophils % 0.1 D Basophils % 0.1 Band Neutrophils Differential Comment Platelet Estimate Platelet Comment Morphology Comment Sodium 143 Potassium 2.9 L* Chloride 120 H Carbon Dioxide 13 L Anion Gap 10 BUN 20 H Creatinine 2.0 H Creat Clearance w eGFR 24.42 Random Glucose 100 D Hemoglobin A1c % Lactic Acid Calcium 7.2 L Magnesium 1.8 Iron TIBC Iron Saturation Total Bilirubin 0.3 D AST 17 D ALT 17 Alkaline Phosphatase 53 Total Protein 4.9 L Albumin 1.3 L Blood Type O POSITIVE Crossmatch See Detail IMP: Failure to thrive NAGMA Suspected sepsis Leukocytosis UTI PLAN: -ABX -IVF -Aspiration precautions -DNR/DNI -Supportive/comfort care measures Dr Steen
[2016-12-01] MEDS ORDERED: PIPERACILLIN/TAZOB 3.375 GM 3.375 GM in DEXTROSE 5%-WATER - 50 ML IVPB ONE (12:47)
--- NOTE | 2016-12-01 13:18 | PN ---
Progress Note, Physician History of Present Illness: patient transferred out of icu stable blood cx results noted vanco level noted - Current Medication List Current Medications: Active Medications Amino Acids (Prostat Sugar-Free Packet -) 30 ml PO BID@0800,1730 [facility] Last Admin: 12/01/16 07:56 Dose: 30 ml Chlorhexidine Gluconate (Hibiclens For Decolonization -) 1 applic TP HS [facility] Last Admin: 11/30/16 22:28 Dose: Not Given Diphenoxylate HCl/Atropine (Lomotil -) 1 combo PO Q8H PRN PRN Reason: DIARRHEA Last Admin: 12/01/16 01:42 Dose: 1 combo Enoxaparin Sodium (Lovenox -) 30 mg SQ HS [facility] Last Admin: 11/30/16 22:28 Dose: 30 mg Folic Acid (Folic Acid -) 1 mg PO DAILY [facility] Last Admin: 12/01/16 08:59 Dose: 1 mg Potassium Chloride 10 meq/ (Sodium Chloride) 1,005 mls @ 75 mls/hr IVPB Q13H [facility] Last Admin: 12/01/16 09:50 Dose: 75 mls/hr Piperacillin Sod/Tazobactam Sod (Zosyn 3.375gm Ivpb (Pre-Docked)) 50 mls @ 100 mls/hr IVPB Q8H-IV [facility] Vancomycin HCl (Vancomycin (Pre-Docked)) 250 mls @ 250 mls/hr IVPB DAILY@1400 [facility] Mupirocin (Bactroban Ointment (For Decolonization) -) 1 applic NS BID [facility] Stop: 12/03/16 21:59 Last Admin: 12/01/16 08:59 Dose: Not Given Pantoprazole Sodium (Protonix -) 40 mg PO DAILY [facility] Last Admin: 12/01/16 08:59 Dose: 40 mg - Objective Vital Signs: Vital Signs Temperature 97.4 F L 12/01/16 07:56 Pulse Rate 68 12/01/16 07:56 Respiratory Rate 19 12/01/16 07:56 Blood Pressure 110/59 12/01/16 07:56 O2 Sat by Pulse Oximetry (%) 99 11/30/16 21:00 Constitutional: Yes: No Distress, Calm Cardiovascular: Yes: Regular Rate and Rhythm Respiratory: Yes: Regular Gastrointestinal: Yes: Normal Bowel Sounds, Soft Musculoskeletal: Yes: WNL Extremities: Yes: WNL Neurological: Yes: Alert, Oriented Psychiatric: Yes: Alert Labs: CBC, BMP 12/01/16 06:00 12/01/16 06:00 INR, PTT INR 1.27 (0.82-1.09) H 11/28/16 15:25 Assessment/Plan 71-year-old female, with a significant past medical history of htn, vitamin b12 deficiency, hlp, cervical cancer (status post TAHBSO, with radiation and chemotherapy approximately 35 years ago at [facility], apparently in remission according to the patient), right sided urostomy in place (placed in 2009 secondary to radiation injury) admitted for eval of their emergent condition. She was transferred from [place] to [place] ICU for higher LOC. 1. r/o uti 2. Sepsis 3. Failure to thrive 4. Anemia 5. Thrombocytosis 6. Hypoalbuminemia 7. Weakness 8. Hyperglycemia 9. NANY on CKD 10. Hyponatremia l 11. hx htn lactic acidosis bacteremia plan patient has got one dose of vanco await for cx results to come back will hold of vanco as levels high will restart vanco tomorrow rest ct current mgmt
--- NOTE | 2016-12-01 13:20 | PN ---
Progress Note, Physician History of Present Illness: events noted form last night patient was febrile started on additional abx patient afebrile since then - Current Medication List Current Medications: Active Medications Amino Acids (Prostat Sugar-Free Packet -) 30 ml PO BID@0800,1730 [facility] Last Admin: 12/01/16 07:56 Dose: 30 ml Chlorhexidine Gluconate (Hibiclens For Decolonization -) 1 applic TP HS [facility] Last Admin: 11/30/16 22:28 Dose: Not Given Diphenoxylate HCl/Atropine (Lomotil -) 1 combo PO Q8H PRN PRN Reason: DIARRHEA Last Admin: 12/01/16 01:42 Dose: 1 combo Enoxaparin Sodium (Lovenox -) 30 mg SQ HS [facility] Last Admin: 11/30/16 22:28 Dose: 30 mg Folic Acid (Folic Acid -) 1 mg PO DAILY [facility] Last Admin: 12/01/16 08:59 Dose: 1 mg Potassium Chloride 10 meq/ (Sodium Chloride) 1,005 mls @ 75 mls/hr IVPB Q13H [facility] Last Admin: 12/01/16 09:50 Dose: 75 mls/hr Piperacillin Sod/Tazobactam Sod (Zosyn 3.375gm Ivpb (Pre-Docked)) 50 mls @ 100 mls/hr IVPB Q8H-IV [facility] Vancomycin HCl (Vancomycin (Pre-Docked)) 250 mls @ 250 mls/hr IVPB DAILY@1400 [facility] Mupirocin (Bactroban Ointment (For Decolonization) -) 1 applic NS BID [facility] Stop: 12/03/16 21:59 Last Admin: 12/01/16 08:59 Dose: Not Given Pantoprazole Sodium (Protonix -) 40 mg PO DAILY [facility] Last Admin: 12/01/16 08:59 Dose: 40 mg - Objective Vital Signs: Vital Signs Temperature 97.4 F L 12/01/16 07:56 Pulse Rate 68 12/01/16 07:56 Respiratory Rate 19 12/01/16 07:56 Blood Pressure 110/59 12/01/16 07:56 O2 Sat by Pulse Oximetry (%) 99 11/30/16 21:00 Constitutional: Yes: No Distress, Calm Cardiovascular: Yes: Regular Rate and Rhythm Respiratory: Yes: Regular, CTA Bilaterally Gastrointestinal: Yes: Normal Bowel Sounds, Soft Musculoskeletal: Yes: WNL Extremities: Yes: WNL Neurological: Yes: Alert, Oriented Psychiatric: Yes: Alert Labs: CBC, BMP 12/01/16 06:00 12/01/16 06:00 INR, PTT INR 1.27 (0.82-1.09) H 11/28/16 15:25 Assessment/Plan 71-year-old female, with a significant past medical history of htn, vitamin b12 deficiency, hlp, cervical cancer (status post TAHBSO, with radiation and chemotherapy approximately 35 years ago at [facility], apparently in remission according to the patient), right sided urostomy in place (placed in 2009 secondary to radiation injury) admitted for eval of their emergent condition. She was transferred from [place] to [place] ICU for higher LOC. 1. r/o uti 2. Sepsis 3. Failure to thrive 4. Anemia 5. Thrombocytosis 6. Hypoalbuminemia 7. Weakness 8. Hyperglycemia 9. NANY on CKD 10. Hyponatremia l 11. hx htn lactic acidosis bacteremia plan continue vanco and zosyn urine results noted await for identification of blood cx species continue current mgmt will check vanco level tomorrow
--- NOTE | 2016-12-01 15:09 | PN ---
Physical Exam: SUBJECTIVE: Patient seen and examined. She was pleasant, smiling and allow me to examine her today. OBJECTIVE: GENERAL: The patient is awake, alert, and fully oriented - allowing me to examine today, but briefly HEAD: Normal with no signs of trauma. LUNGS: anterior lung ortega with clear lung sounds HEART: Regular rate and rhythm ABDOMEN: Urostomy intact, abdomen soft, non distended EXTREMITIES: No edema noted on lower ext. NEUROLOGICAL: Normal speech, bed bound PSYCH: alert, anxious at times, oriented x 3 SKIN: Urostomy on lower abdomen, pink stoma, Multiple skin breakdown present on admission but unable to fully assess as pt refused to have Allevyn removed during my exam. As per nursing records: (1) Coccyx with a stage 2 pressure ulcer (1.5cm x 1.5cm) with open skin, min amt of serosang, redness on surrounding area. (2) Left buttock stage 1 pressure ulcer, skin intact with redness, non- blanchable. (3) Right buttocks deep tissue injury (3cm x 2cm) blackened skin noted, intact with redness surrounding area Vital Signs Period Temp Pulse Resp BP Sys/Dillon Pulse Ox Last 24 Hr 97.4 F-98.0 F 65-96 19-20 90-122/49-77 99 Laboratory Results - last 24 hr 11/29/16 11/30/16 11/30/16 05:15 15:40 15:40 WBC 11.1 H D RBC 3.09 L Hgb 7.4 L Hct 24.7 L MCV 79.7 L MCHC 30.1 L RDW 18.6 H Plt Count 422 MPV 6.9 L Neutrophils % 87.0 H D Lymphocytes % 4.0 L D Monocytes % 2.0 L Eosinophils % Basophils % Band Neutrophils 7.0 Differential Comment Manual diff done Platelet Estimate Adequate Platelet Comment Rare giant plts Morphology Comment Slide scanned Sodium Potassium Chloride Carbon Dioxide Anion Gap BUN Creatinine Creat Clearance w eGFR Random Glucose Hemoglobin A1c % 5.0 Lactic Acid 2.412 H* Calcium Magnesium Total Bilirubin AST ALT Alkaline Phosphatase Total Protein Albumin Blood Type Antibody Screen Crossmatch 11/30/16 11/30/16 12/01/16 15:40 21:30 06:00 WBC 10.6 H RBC 2.66 L Hgb 6.7 L* Hct 21.4 L MCV 80.5 MCHC 31.2 L RDW 18.5 H Plt Count 311 D MPV 6.8 L Neutrophils % 89.3 H Lymphocytes % 6.7 L D Monocytes % 3.8 D Eosinophils % 0.1 D Basophils % 0.1 Band Neutrophils Differential Comment Platelet Estimate Platelet Comment Morphology Comment Sodium 143 Potassium 3.0 L D Chloride 116 H Carbon Dioxide 14 L Anion Gap 13 BUN 22 H Creatinine 1.9 H Creat Clearance w eGFR 25.91 Random Glucose 134 H D Hemoglobin A1c % Lactic Acid 1.598 Calcium 7.2 L Magnesium Total Bilirubin 0.2 AST 22 D ALT 20 Alkaline Phosphatase 62 Total Protein 5.8 L Albumin 1.5 L Blood Type Antibody Screen Crossmatch 12/01/16 12/01/16 06:00 08:05 WBC RBC Hgb Hct MCV MCHC RDW Plt Count MPV Neutrophils % Lymphocytes % Monocytes % Eosinophils % Basophils % Band Neutrophils Differential Comment Platelet Estimate Platelet Comment Morphology Comment Sodium 143 Potassium 2.9 L* Chloride 120 H Carbon Dioxide 13 L Anion Gap 10 BUN 20 H Creatinine 2.0 H Creat Clearance w eGFR 24.42 Random Glucose 100 D Hemoglobin A1c % Lactic Acid Calcium 7.2 L Magnesium 1.8 Total Bilirubin 0.3 D AST 17 D ALT 17 Alkaline Phosphatase 53 Total Protein 4.9 L Albumin 1.3 L Blood Type O POSITIVE Antibody Screen Negative Crossmatch See Detail Active Medications Generic Name Dose Route Start Last Admin Trade Name Freq PRN Reason Stop Dose Admin Amino Acids 30 ml 11/30/16 08:00 12/01/16 07:56 Prostat Sugar-Free Packet - PO 30 ml BID@0800,1730 [facility] Administration Chlorhexidine Gluconate 1 applic 11/28/16 22:00 11/30/16 22:28 Hibiclens For Decolonization - TP Not Given HS [facility] Diphenoxylate HCl/Atropine 1 combo 11/30/16 14:37 12/01/16 01:42 Lomotil - PO 1 combo Q8H PRN Administration DIARRHEA Folic Acid 1 mg 11/30/16 10:00 12/01/16 08:59 Folic Acid - PO 1 mg DAILY [facility] Administration Heparin Sodium (Porcine) 5,000 unit 12/01/16 22:00 Heparin - SQ TID [facility] Potassium Chloride 10 meq/ 1,005 mls @ 75 mls/hr 12/01/16 09:30 12/01/16 09:50 Sodium Chloride IVPB 75 mls/hr Q13H [facility] Administration Piperacillin Sod/Tazobactam Sod 50 mls @ 100 mls/hr 12/01/16 13:45 Zosyn 3.375gm Ivpb (Pre-Docked) IVPB Q8H-IV [facility] Vancomycin HCl 250 mls @ 250 mls/hr 12/01/16 14:00 Vancomycin (Pre-Docked) IVPB DAILY@1400 [facility] Mupirocin 1 applic 11/28/16 22:00 12/01/16 08:59 Bactroban Ointment (For Decolonization) - NS 12/03/16 21:59 Not Given BID MIKE Pantoprazole Sodium 40 mg 11/30/16 10:00 12/01/16 08:59 Protonix - PO 40 mg DAILY [facility] Administration ASSESSMENT/PLAN: This patient is a 71 year old female with a significant past medical history of cervical cancer (s/p TAHBSO, s/p RT and chemotherapy apx 35 years ago). She also has a right sided urostomy as per the medical records. She presented to [facility] ER on 11/28/2016 with generalized weakness after her daughter found her covered in feces and urine at home. As per medical records, pt has a poor appetite with unspecified weight loss. Per documentation she was previously worked up at [facility] for malignancy. On admission she denied fevers, chills, nausea/vomiting, cough, recent travel, chest pain, abdominal pain or dizziness. ID: Urinary Tract Infection/Sepsis secondary to UTI - acute Assessment/Plan: Lactic acid 3.7 on admission, then normalized to 1.756. Given fluids and started on maintenance fluids of NS @ 75. Yesterday had an acute episode of shaking chills complaining of "being cold" with a rectal temp of 100.1F Lactic acid elevated at 3 then normalized after 500 cc NS bolus. Blood cultures, UC, xray ordered as per protocol. 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 Hematology Anemia - most likely chronic Assessment/Plan: Unknown baseline, Hmg/Hct: critical low today at 6.7/21.4, 1 unit of prbc ordered, repeat CBC in a.m. monitor for any signs of bleeding Endocrine: Hyperglycemia on admission, now normalizing Assessment/Plan: hmga1c 5.0 , not diabetic GI: Acute Kidney Injury - acute Assessment/Plan: Monitor BUN/Creatinine, baseline BUN/Creat 16/1.0 Continue IV hydration Renal consulted F.E.N. Fluids: NS with 10MEQ KCL at 75cc/hr Electrolytes: Potassium 3.3 repleted with 2 K riders: Magnesium 1.8 Prophylaxis: Heparin TID Disposition: Patient signed a DNR/DNI order in my presence. DNR/DNI order placed. Visit type - Emergency Visit Emergency Visit: Yes ED Registration Date: 11/28/16 Care time: The patient presented to the Emergency Department on the above date and was hospitalized for further evaluation of their emergent condition. - New Patient This patient is new to me today: No - Critical Care Critical Care patient: No - Discharge Referral Referred to [facility] Med P.C.: No
[2016-12-01] MEDS: PIPERACILLIN/TAZOB 3.375 GM 50 ML IVPB SCH ×2 (16:36→18:23)
[2016-12-01] MEDS: VANCOMYCIN 1 GRAM (PRE-DOCKED) 250 ML IVPB SCH (16:37)
[2016-12-01] MEDS: CHLORHEXIDINE GLUCONATE 4% CLEANSER FOR DECOLONIZATION TP SCH (21:41)
[2016-12-01] MEDS: HEPARIN NA (PORCINE) 5,000 UNITS/ML 1ML VIAL SQ SCH (21:50)
[2016-12-02] MEDS: PIPERACILLIN/TAZOB 3.375 GM 50 ML IVPB SCH ×3 (03:54→17:29)
[2016-12-02] MEDS: HEPARIN NA (PORCINE) 5,000 UNITS/ML 1ML VIAL SQ SCH ×3 (06:07→22:26)
[2016-12-02] MEDS: DIPHENOXYLATE 2.5/ATROPINE.025 1 COMBO TABLET PO PRN (06:07)
[2016-12-02 07:19] LABS: BASOPHIL 0.2 % (0-2.0); EOSINOPHIL 1.3 % (0-4.5); MCH 26.8 pg (25.7-33.7); MCHC 32.6 g/dl (32.0-36.0); MEAN CELL VOLUME 82.3 fl (80-96); MEAN PLT VOLUME 6.6 fl (7.5-11.1); NEUTROPHILS 71.7 % (42.8-82.8); PLATELET COUNT 301 K/MM3 (134-434); RDW 16.9 % (11.6-15.6); WHITE BLOOD COUNT 7.3 K/mm3 (4.0-10.0)
[2016-12-02 07:42] LABS: ALBUMIN 1.2 g/dl (3.4-5.0); MAGNESIUM 1.7 mg/dL (1.8-2.4)
[2016-12-02] MEDS: AMINO ACIDS/PROTEIN HYDROLYS SUGAR-FREE 30 ML PACKET PO SCH ×2 (07:43→17:29)
[2016-12-02 07:47] LABS: BILIRUBIN,TOTAL 0.7 mg/dL (0.2-1.0); CREATININE 1.9 mg/dL (0.55-1.02); TOT PROT 4.5 g/dl (6.4-8.2)
[2016-12-02] MEDS: MUPIROCIN 2% TOPICAL OINTMENT FOR DECOLONIZATION NS SCH (12:09)
[2016-12-02] MEDS: PANTOPRAZOLE 40 MG TABLET (FP) PO SCH (12:10)
[2016-12-02] MEDS: FOLIC ACID 1 MG TABLET (FP) PO SCH (12:11)
[2016-12-02] MEDS: POTASSIUM CHLORIDE 10 MEQ in SODIUM CHLORIDE 1,000 ML IVPB SCH (12:23)
[2016-12-02] MEDS: VANCOMYCIN 1 GRAM (PRE-DOCKED) 250 ML IVPB SCH (14:40)
--- NOTE | 2016-12-02 15:33 | PN ---
Progress Note (short form) - Note Progress Note: PULMONARY Denies shortness of breath or chest pain. No fevers or chills. Last Vital Signs Temp Pulse Resp BP Pulse Ox 97.6 F 58 L 20 113/58 97 12/02/16 06:00 12/02/16 06:00 12/02/16 06:00 12/02/16 06:00 12/01/16 20:55 Gen: NAD at rest Heart: RRR Lung: decreased breath sounds at the bases Abd: soft, nontender Ext: no edema CBC, BMP 12/02/16 06:00 12/02/16 06:00 Active Medications Amino Acids (Prostat Sugar-Free Packet -) 30 ml PO BID@0800,1730 [facility] Last Admin: 12/02/16 07:43 Dose: 30 ml Chlorhexidine Gluconate (Hibiclens For Decolonization -) 1 applic TP HS [facility] Last Admin: 12/01/16 21:41 Dose: Not Given Diphenoxylate HCl/Atropine (Lomotil -) 1 combo PO Q8H PRN PRN Reason: DIARRHEA Last Admin: 12/02/16 06:07 Dose: 1 combo Folic Acid (Folic Acid -) 1 mg PO DAILY [facility] Last Admin: 12/02/16 12:11 Dose: 1 mg Heparin Sodium (Porcine) (Heparin -) 5,000 unit SQ TID [facility] Last Admin: 12/02/16 14:40 Dose: 5,000 unit Potassium Chloride 10 meq/ (Sodium Chloride) 1,005 mls @ 75 mls/hr IVPB Q13H [facility] Last Admin: 12/02/16 12:23 Dose: 75 mls/hr Piperacillin Sod/Tazobactam Sod (Zosyn 3.375gm Ivpb (Pre-Docked)) 50 mls @ 100 mls/hr IVPB Q8H-IV [facility] Last Admin: 12/02/16 12:11 Dose: 100 mls/hr Vancomycin HCl (Vancomycin (Pre-Docked)) 250 mls @ 250 mls/hr IVPB DAILY@1400 [facility] Last Admin: 12/02/16 14:40 Dose: 250 mls/hr Mupirocin (Bactroban Ointment (For Decolonization) -) 1 applic NS BID [facility] Stop: 12/03/16 21:59 Last Admin: 12/02/16 12:09 Dose: Not Given Pantoprazole Sodium (Protonix -) 40 mg PO DAILY [facility] Last Admin: 12/02/16 12:10 Dose: 40 mg A/P Polymicrobial Bacteremia UTI Sepsis Metabolic Acidosis Lactic Acidosis Acute Kidney Injury Failure to Thrive - continue antibiotics per ID - IVF - monitor urine output, creatinine - replete lytes - DVT prophylaxis
--- NOTE | 2016-12-02 16:19 | PN ---
Progress Note, Physician History of Present Illness: patient feels much better no fevers - Current Medication List Current Medications: Active Medications Amino Acids (Prostat Sugar-Free Packet -) 30 ml PO BID@0800,1730 [facility] Last Admin: 12/02/16 07:43 Dose: 30 ml Chlorhexidine Gluconate (Hibiclens For Decolonization -) 1 applic TP HS [facility] Last Admin: 12/01/16 21:41 Dose: Not Given Diphenoxylate HCl/Atropine (Lomotil -) 1 combo PO Q8H PRN PRN Reason: DIARRHEA Last Admin: 12/02/16 06:07 Dose: 1 combo Folic Acid (Folic Acid -) 1 mg PO DAILY [facility] Last Admin: 12/02/16 12:11 Dose: 1 mg Heparin Sodium (Porcine) (Heparin -) 5,000 unit SQ TID [facility] Last Admin: 12/02/16 14:40 Dose: 5,000 unit Potassium Chloride 10 meq/ (Sodium Chloride) 1,005 mls @ 75 mls/hr IVPB Q13H [facility] Last Admin: 12/02/16 12:23 Dose: 75 mls/hr Piperacillin Sod/Tazobactam Sod (Zosyn 3.375gm Ivpb (Pre-Docked)) 50 mls @ 100 mls/hr IVPB Q8H-IV [facility] Last Admin: 12/02/16 12:11 Dose: 100 mls/hr Vancomycin HCl (Vancomycin (Pre-Docked)) 250 mls @ 250 mls/hr IVPB DAILY@1400 [facility] Last Admin: 12/02/16 14:40 Dose: 250 mls/hr Mupirocin (Bactroban Ointment (For Decolonization) -) 1 applic NS BID [facility] Stop: 12/03/16 21:59 Last Admin: 12/02/16 12:09 Dose: Not Given Pantoprazole Sodium (Protonix -) 40 mg PO DAILY [facility] Last Admin: 12/02/16 12:10 Dose: 40 mg - Objective Vital Signs: Vital Signs Temperature 97.6 F 12/02/16 06:00 Pulse Rate 58 L 12/02/16 06:00 Respiratory Rate 20 12/02/16 06:00 Blood Pressure 113/58 12/02/16 06:00 O2 Sat by Pulse Oximetry (%) 97 12/01/16 20:55 Constitutional: Yes: No Distress, Calm Cardiovascular: Yes: Regular Rate and Rhythm Respiratory: Yes: Regular, CTA Bilaterally Gastrointestinal: Yes: Normal Bowel Sounds, Soft Musculoskeletal: Yes: WNL Extremities: Yes: WNL Wound/Incision: Yes: Other (small ulcer stage 2 on the sacrum and rt buttocks) Neurological: Yes: Alert, Oriented Psychiatric: Yes: Alert Labs: CBC, BMP 12/02/16 06:00 12/02/16 06:00 INR, PTT INR 1.27 (0.82-1.09) H 11/28/16 15:25 Assessment/Plan 71-year-old female, with a significant past medical history of htn, vitamin b12 deficiency, hlp, cervical cancer (status post TAHBSO, with radiation and chemotherapy approximately 35 years ago at [facility], apparently in remission according to the patient), right sided urostomy in place (placed in 2009 secondary to radiation injury) admitted for eval of their emergent condition. She was transferred from [place] to [place] ICU for higher LOC. 1. r/o uti 2. Sepsis 3. Failure to thrive 4. Anemia 5. Thrombocytosis 6. Hypoalbuminemia 7. Weakness 8. Hyperglycemia 9. NANY on CKD 10. Hyponatremia l 11. hx htn lactic acidosis bacteremia plan continue zosyn urine results noted await for identification of blood cx species continue current mgmt vanco trough high stopped vanco
--- NOTE | 2016-12-02 17:51 | PN ---
Physical Exam: SUBJECTIVE: Patient seen and examined. She states she does not want to wash she is very cold and will wash tomorrow. Per RN diarrhea continues, no day fever, small stage II ulcer cesar rectal OBJECTIVE: Vital Signs Period Temp Pulse Resp BP Sys/Dillon Pulse Ox Last 24 Hr 97.1 F-98.4 F 58-79 18-20 102-129/58-68 97 PE Neuro: alert, awake, cn 2-12intact Pulm: diminished, no wheezing CV: s1 s2 rrr no mrg Abd: soft nd nt +bs, no masses appreciated : urostomy present clear urine Ext: cool to touch feet, cap refill>3 secs Laboratory Results - last 24 hr 12/01/16 12/01/16 12/02/16 08:05 17:30 06:00 WBC 7.3 D RBC 3.68 D Hgb 9.9 L D Hct 30.3 L D MCV 82.3 MCHC 32.6 RDW 16.9 H Plt Count 301 MPV 6.6 L Neutrophils % 71.7 Lymphocytes % 18.0 D Monocytes % 8.8 D Eosinophils % 1.3 D Basophils % 0.2 Sodium Potassium 3.4 L Chloride Carbon Dioxide Anion Gap BUN Creatinine Creat Clearance w eGFR Random Glucose Calcium Magnesium Total Bilirubin AST ALT Alkaline Phosphatase Total Protein Albumin Blood Type O POSITIVE Antibody Screen Negative Crossmatch See Detail 12/02/16 06:00 WBC RBC Hgb Hct MCV MCHC RDW Plt Count MPV Neutrophils % Lymphocytes % Monocytes % Eosinophils % Basophils % Sodium 141 Potassium 3.4 L Chloride 120 H Carbon Dioxide 11 L Anion Gap 10 BUN 17 Creatinine 1.9 H Creat Clearance w eGFR 25.91 Random Glucose 76 D Calcium 7.0 L Magnesium 1.7 L Total Bilirubin 0.7 D AST 13 L D ALT 12 D Alkaline Phosphatase 45 Total Protein 4.5 L Albumin 1.2 L Blood Type Antibody Screen Crossmatch Active Medications Generic Name Dose Route Start Last Admin Trade Name Freq PRN Reason Stop Dose Admin Amino Acids 30 ml 11/30/16 08:00 12/02/16 17:29 Prostat Sugar-Free Packet - PO 30 ml BID@0800,1730 [facility] Administration Chlorhexidine Gluconate 1 applic 11/28/16 22:00 12/01/16 21:41 Hibiclens For Decolonization - TP Not Given HS [facility]KE Diphenoxylate HCl/Atropine 1 combo 11/30/16 14:37 12/02/16 06:07 Lomotil - PO 1 combo Q8H PRN Administration DIARRHEA Folic Acid 1 mg 11/30/16 10:00 12/02/16 12:11 Folic Acid - PO 1 mg DAILY [facility] Administration Heparin Sodium (Porcine) 5,000 unit 12/01/16 22:00 12/02/16 14:40 Heparin - SQ 5,000 unit TID [facility] Administration Potassium Chloride 10 meq/ 1,005 mls @ 75 mls/hr 12/01/16 09:30 12/02/16 12:23 Sodium Chloride IVPB 75 mls/hr Q13H [facility] Administration Piperacillin Sod/Tazobactam Sod 50 mls @ 100 mls/hr 12/01/16 13:45 12/02/16 17: 29 Zosyn 3.375gm Ivpb (Pre-Docked) IVPB 100 mls/hr Q8H-IV [facility] Administration Mupirocin 1 applic 11/28/16 22:00 12/02/16 12:09 Bactroban Ointment (For Decolonization) - NS 12/03/16 21:59 Not Given BID [facility]KE Pantoprazole Sodium 40 mg 11/30/16 10:00 12/02/16 12:10 Protonix - PO 40 mg DAILY [facility]KE Administration Microbiology 11/30/16 15:45 Blood - Peripheral Venous Blood Culture - Preliminary NO GROWTH OBTAINED AFTER 48 HOURS, INCUBATION TO CONTINUE FOR 3 DAYS. 11/30/16 15:45 Blood - Peripheral Venous Blood Culture - Preliminary NO GROWTH OBTAINED AFTER 48 HOURS, INCUBATION TO CONTINUE FOR 3 DAYS. 11/28/16 15:25 Blood - Peripheral Venous Blood Culture - Preliminary Beta Hem Streptococcus Group F Pending Organism 11/29/16 14:45 Blood - Peripheral Venous Blood Culture - Preliminary NO GROWTH OBTAINED AFTER 72 HOURS, INCUBATION TO CONTINUE FOR 2 DAYS. 11/30/16 16:15 Urine - Urostomy Bag Urine Culture - Final 11/28/16 18:05 Blood - Peripheral Venous Blood Culture - Preliminary Beta Hem Streptococcus Group F 11/29/16 14:35 Blood - Peripheral Venous Blood Culture - Preliminary NO GROWTH OBTAINED AFTER 48 HOURS, INCUBATION TO CONTINUE FOR 3 DAYS. 11/30/16 16:55 Nasopharyngeal Swab Respiratory Virus Panel - Preliminary 11/28/16 19:44 Urine - Urine Nephrostomy Tube Urine Culture - Final Proteus Vulgaris 11/30/16 16:55 Nasopharyngeal Swab Influenza Types A,B Antigen (TERRI) - Final 11/30/16 16:55 Nasopharyngeal Swab - Final 11/28/16 18:30 Stool Clostridium difficile Antigen (TERRI) - Final 11/28/16 18:30 Stool Clostridium difficile Toxin Assay - Final Assessment: 71 year old female with pmhx of cervical cancer (s/p TAHBSO, s/p RT and chemotherapy apx 35 years ago), s/p urostomy in 2009 2/2 radiation injury admitted to [facility], transferred to [facility] for generalizes weakness, failure to thrive, sepsis. Plan: 1. Sepsis d/t polymicrobial bacteremia and + UTI - Repeat BC negative - Lactic acid wnl - Cont zosyn - Vanco stopped, elevated trough - ID following 2. NANY on CKD/non gap metabolic acidosis (ileal conduit, CKD, diarrhea) - Start 1/2 NS with bicarb and 10meq potassium - Sodium bicarb 650 TID - Renal following 3. Failure to thrive/severe malnutrition - Due to hx of cervical cancer - Cont folate/MVI/nutritional supplements, pt states she has a small appetite 4. Diarrhea - C Diff negative - Collect stool cx, ova parasite 5. Acute blood loss anemia - Iron studies noted - Start ferrous sulfate - s/p 1uprbc /, appropriate rise 6. Hypomagnesmia - 1gm mg IV x1 Visit type - Emergency Visit Emergency Visit: Yes ED Registration Date: 11/28/16 Care time: The patient presented to the Emergency Department on the above date and was hospitalized for further evaluation of their emergent condition. - New Patient This patient is new to me today: Yes Date on this admission: 12/02/16 - Critical Care Critical Care patient: No - Discharge Referral Referred to [facility] Med P.C.: No
--- NOTE | 2016-12-02 18:19 | CONSULT ---
Consult Consult Specialty:: Nephrology Reason for Consultation:: CKD - History of Present Illness Chief Complaint: generalized weakness History of Present Illness: Pt is a 71 year old female with pmhx of cervical cancer, right sided urostomy, and CKD who presents to the ER with generalized weakness. She says that she has had multiple episodes of diarrhea and dehydration over the last year. She says that she has two "inoperable tumors" in her abdomen. Her last episode of dehydration was about 2 weeks ago in [facility]. I was called to evaluate her for elevated creatinine. She denies fevers or chills. - History Source History Provided By: Patient, Medical Record - Past Medical History Renal/: Yes: Renal Inusuff ...: No Heme/Onc: Yes: Cancer, Other (cervical cancer) - Alcohol/Substance Use Hx Alcohol Use: No - Smoking History Smoking history: Never smoked Have you smoked in the past 12 months: No Aproximately how many cigarettes per day: 0 Home Medications - Allergies Allergies/Adverse Reactions: Allergies Allergy/AdvReac Type Severity Reaction Status Date / Time No Known Allergies Allergy Unverified 01/26/12 08:57 - Home Medications Home Medications: Ambulatory Orders NK [No Known Home Medication] 11/28/16 Family Disease History - Family Disease History Family History: Denies Review of Systems - Review of Systems Constitutional: reports: Malaise Eyes: reports: No Symptoms Neck: reports: No Symptoms Cardiovascular: reports: Shortness of Breath Respiratory: reports: SOB on Exertion Gastrointestinal: reports: Diarrhea Musculoskeletal: reports: Muscle Weakness Neurological: reports: No Symptoms Endocrine: reports: No Symptoms Hematology/Lymphatic: reports: No Symptoms Physical Exam Vital Signs: Vital Signs Temperature 97.6 F 12/02/16 06:00 Pulse Rate 58 L 12/02/16 06:00 Respiratory Rate 20 12/02/16 06:00 Blood Pressure 113/58 12/02/16 06:00 O2 Sat by Pulse Oximetry (%) 97 12/01/16 20:55 Constitutional: Yes: Calm Eyes: Yes: Conjunctiva Clear HENT: Yes: Atraumatic Neck: Yes: Supple Cardiovascular: Yes: S1, S2 Respiratory: Yes: CTA Bilaterally Gastrointestinal: Yes: Soft Renal/: Yes: Other (ileal conduit) Musculoskeletal: Yes: Muscle Weakness Edema: No Neurological: Yes: Oriented Psychiatric: Yes: Oriented Labs: CBC, BMP 12/02/16 06:00 12/02/16 06:00 Laboratory Tests 12/22/12 03/31/13 04/27/14 09:41 09:38 07:00 Hgb Sodium Potassium Chloride Carbon Dioxide Creatinine 3.6 H D 1.8 H D 1.9 H Magnesium Urine Color Urine Appearance Urine pH Ur Specific [place] Urine Protein Urine Glucose (UA) Urine Ketones Urine Blood Urine Nitrite Urine Bilirubin 01/08/15 03/22/15 12/26/15 08:30 07:06 10:10 Hgb Sodium Potassium Chloride Carbon Dioxide Creatinine 1.8 H 1.4 H D 1.5 H Magnesium Urine Color Urine Appearance Urine pH Ur Specific [place] Urine Protein Urine Glucose (UA) Urine Ketones Urine Blood Urine Nitrite Urine Bilirubin 11/28/16 11/28/16 11/29/16 15:25 19:25 05:15 Hgb Sodium Potassium Chloride Carbon Dioxide Creatinine 2.1 H 1.9 H Magnesium Urine Color Yellow Urine Appearance Cloudy Urine pH 7.0 Ur Specific [place] 1.015 Urine Protein 2+ H Urine Glucose (UA) Negative Urine Ketones Negative Urine Blood 2+ H Urine Nitrite Negative Urine Bilirubin Negative 11/30/16 11/30/16 12/01/16 06:20 15:40 06:00 Hgb Sodium Potassium 2.9 L* Chloride Carbon Dioxide Creatinine 1.9 H 1.9 H 2.0 H Magnesium 1.8 Urine Color Urine Appearance Urine pH Ur Specific [place] Urine Protein Urine Glucose (UA) Urine Ketones Urine Blood Urine Nitrite Urine Bilirubin 12/02/16 12/02/16 06:00 06:00 Hgb 9.9 L D Sodium 141 Potassium 3.4 L Chloride 120 H Carbon Dioxide 11 L Creatinine 1.9 H Magnesium 1.7 L Urine Color Urine Appearance Urine pH Ur Specific [place] Urine Protein Urine Glucose (UA) Urine Ketones Urine Blood Urine Nitrite Urine Bilirubin Imaging - Results Chest X-ray: Report Reviewed Assessment/Plan Current Medications Generic Name Dose Route Start Last Admin Trade Name Freq PRN Reason Stop Dose Admin Amino Acids 30 ml 11/30/16 08:00 12/02/16 17:29 Prostat Sugar-Free Packet - PO 30 ml BID@0800,1730 [facility] Administration Ascorbic Acid 500 mg 12/02/16 22:00 Vitamin C - PO BID [facility] Folic Acid 1 mg 11/30/16 10:00 12/02/16 12:11 Folic Acid - PO 1 mg DAILY [facility] Administration Heparin Sodium (Porcine) 5,000 unit 12/01/16 22:00 12/02/16 14:40 Heparin - SQ 5,000 unit TID [facility] Administration Piperacillin Sod/Tazobactam Sod 50 mls @ 100 mls/hr 12/01/16 13:45 12/02/16 17: 29 Zosyn 3.375gm Ivpb (Pre-Docked) IVPB 100 mls/hr Q8H-IV [facility] Administration Potassium Chloride 20 meq/ 1,010 mls @ 75 mls/hr 12/02/16 18:28 Sodium Chloride IVPB Q13H [facility] Potassium Chloride/Sodium Chloride 1,000 mls @ 75 mls/hr 12/02/16 18:45 Ns+20 Meq Kcl - IV ASDIR [facility] Pantoprazole Sodium 40 mg 11/30/16 10:00 12/02/16 12:10 Protonix - PO 40 mg DAILY [facility] Administration Impression 1. CKD 2. failure to thrive 3. UTI 4. lactic acidosis 5. cervical cancer 6. dehydration 7. metabolic acidosis 8. hypokalemia 9. 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
[2016-12-02] MEDS ORDERED: MAGNESIUM SULF 50% (8.12 MEQ/2 ML-1 GM VIAL) IVPB ONE ×2 (18:25→18:38)
[2016-12-02] MEDS ORDERED: POTASSIUM CHLORIDE 20 MEQ in SODIUM CHLORIDE 1,000 ML IVPB SCH (18:28)
[2016-12-02] MEDS ORDERED: POTASSIUM CHLORIDE IVPB SCH (18:45)
[2016-12-02] MEDS ORDERED: SODIUM BICARBONATE IVPB SCH (18:45)
[2016-12-02] MEDS ORDERED: [UNRECOGNIZED DRUG - OTHER] IVPB SCH (18:45)
[2016-12-02] MEDS ORDERED: SODIUM CHLORIDE 0.9%/KCL 1,000 ML IV SCH (18:45)
[2016-12-02] MEDS: SODIUM BICARBONATE 650 MG TABLET PO SCH ×2 (19:00→22:26)
[2016-12-02] MEDS: ASCORBIC ACID 500 MG TABLET (FP) PO SCH (22:26)
[2016-12-03] MEDS: PIPERACILLIN/TAZOB 3.375 GM 50 ML IVPB SCH ×3 (01:07→18:45)
[2016-12-03] MEDS: HEPARIN NA (PORCINE) 5,000 UNITS/ML 1ML VIAL SQ SCH ×3 (05:50→22:48)
[2016-12-03] MEDS: SODIUM BICARBONATE 650 MG TABLET PO SCH ×3 (05:50→22:30)
[2016-12-03 07:40] LABS: MCH 26.8 pg (25.7-33.7); MCHC 33.3 g/dl (32.0-36.0); MEAN CELL VOLUME 80.5 fl (80-96); MEAN PLT VOLUME 6.6 fl (7.5-11.1); PLATELET COUNT 353 K/MM3 (134-434); RDW 17.4 % (11.6-15.6); WHITE BLOOD COUNT 8.2 K/mm3 (4.0-10.0)
[2016-12-03 09:08] LABS: ALBUMIN 1.4 g/dl (3.4-5.0); BILIRUBIN,TOTAL 0.6 mg/dL (0.2-1.0); CALCIUM 7.7 mg/dL (8.5-10.1); CREATININE 2.2 mg/dL (0.55-1.02); PHOSPHOROUS 3.3 mg/dL (2.5-4.9); TOT PROT 5.5 g/dl (6.4-8.2)
[2016-12-03 09:42] LABS: METAMYELOCYTE 1 % (0-2)
[2016-12-03 09:43] LABS: BURR CELLS 2+
[2016-12-03] MEDS ORDERED: PT OWN MED DRAWER 7, Y5N ONE ×2 (09:56→17:14)
[2016-12-03] MEDS: AMINO ACIDS/PROTEIN HYDROLYS SUGAR-FREE 30 ML PACKET PO SCH ×2 (10:03→17:20)
--- NOTE | 2016-12-03 10:49 | PN ---
Progress Note (short form) - Note Progress Note: Awake in NAD. Mildly confused. Intake & Output 11/30/16 12/01/16 12/02/16 12/03/16 23:59 23:59 23:59 23:59 Intake Total 2495 1100 2455 1050 Output Total 330 1150 850 300 Balance 2165 -50 1605 750 Last Vital Signs Temp Pulse Resp BP Pulse Ox 97.8 F 78 20 139/90 98 12/03/16 08:36 12/03/16 09:23 12/03/16 08:36 12/03/16 08:36 12/03/16 09:23 Active Medications Amino Acids (Prostat Sugar-Free Packet -) 30 ml PO BID@0800,1730 [facility] Last Admin: 12/03/16 10:03 Dose: Not Given Ascorbic Acid (Vitamin C -) 500 mg PO BID [facility] Last Admin: 12/02/16 22:26 Dose: 500 mg Ferrous Sulfate (Feosol -) 325 mg PO TIDCM [facility] Folic Acid (Folic Acid -) 1 mg PO DAILY [facility] Last Admin: 12/02/16 12:11 Dose: 1 mg Heparin Sodium (Porcine) (Heparin -) 5,000 unit SQ TID [facility] Last Admin: 12/03/16 05:50 Dose: 5,000 unit Piperacillin Sod/Tazobactam Sod (Zosyn 3.375gm Ivpb (Pre-Docked)) 50 mls @ 100 mls/hr IVPB Q8H-IV [facility] Last Admin: 12/03/16 10:04 Dose: 100 mls/hr Potassium Chloride 10 meq/Sodium Bicarbonate 75 meq/Sodium Chloride 1,080 mls @ 75 mls/hr IVPB Q14H [facility] Last Admin: 12/02/16 22:25 Dose: 75 mls/hr Pantoprazole Sodium (Protonix -) 40 mg PO DAILY [facility] Last Admin: 12/02/16 12:10 Dose: 40 mg Sodium Bicarbonate (Sodium Bicarbonate -) 650 mg PO TID [facility] Last Admin: 12/03/16 05:50 Dose: 650 mg Gen: NAD Pulm: diminished at the bases, no wheezing CV: s1 s2 rrr Abd: soft nd nt +bs : urostomy present clear urine Ext: cool to touch Neuro: non-focal Laboratory Results - last 24 hr 12/03/16 12/03/16 06:00 08:30 WBC 8.2 RBC 4.43 D Hgb 11.9 D Hct 35.7 D MCV 80.5 MCHC 33.3 RDW 17.4 H Plt Count 353 MPV 6.6 L Neutrophils % 66.0 Lymphocytes % 26.0 D Monocytes % 2.0 L Eosinophils % 3.0 D Band Neutrophils 1.0 D Metamyelocytes 1 Myelocytes 1 Differential Comment Manual diff done [place] Cells 2+ Sodium 140 Potassium 3.8 Chloride 115 H Carbon Dioxide 14 L D Anion Gap 11 BUN 16 Creatinine 2.2 H Creat Clearance w eGFR 21.88 Random Glucose 70 L Calcium 7.7 L Phosphorus 3.3 Magnesium 2.0 Total Bilirubin 0.6 AST 17 D ALT 14 Alkaline Phosphatase 76 D Total Protein 5.5 L D Albumin 1.4 L IMP: Failure to thrive NAGMA Suspected sepsis Leukocytosis UTI PLAN: -ABX -IVF -Aspiration precautions -DNR/DNI -Supportive/comfort care measures Dr Steen
[2016-12-03] MEDS: FERROUS SO4 325 MG TABLET (FP) PO SCH ×3 (11:36→17:20)
[2016-12-03] MEDS: ONDANSETRON 4 MG/2 ML VIAL IVPUSH PRN ×2 (11:39→17:20)
[2016-12-03] MEDS: FOLIC ACID 1 MG TABLET (FP) PO SCH (13:16)
[2016-12-03] MEDS: PANTOPRAZOLE 40 MG TABLET (FP) PO SCH (13:16)
[2016-12-03] MEDS: ASCORBIC ACID 500 MG TABLET (FP) PO SCH ×2 (13:16→22:30)
--- NOTE | 2016-12-03 15:12 | PN ---
Progress Note, Physician History of Present Illness: Pt seen and examined at bedside. She is awake and alert. She is not tolerating diet and had an episode of vomiting this morning. - Current Medication List Current Medications: Active Medications Amino Acids (Prostat Sugar-Free Packet -) 30 ml PO BID@0800,1730 [facility] Last Admin: 12/03/16 10:03 Dose: Not Given Ascorbic Acid (Vitamin C -) 500 mg PO BID [facility] Last Admin: 12/03/16 13:16 Dose: Not Given Ferrous Sulfate (Feosol -) 325 mg PO TIDCM [facility] Last Admin: 12/03/16 13:32 Dose: Not Given Folic Acid (Folic Acid -) 1 mg PO DAILY [facility] Last Admin: 12/03/16 13:16 Dose: Not Given Heparin Sodium (Porcine) (Heparin -) 5,000 unit SQ TID [facility] Last Admin: 12/03/16 14:30 Dose: 5,000 unit Piperacillin Sod/Tazobactam Sod (Zosyn 3.375gm Ivpb (Pre-Docked)) 50 mls @ 100 mls/hr IVPB Q8H-IV [facility] Last Admin: 12/03/16 10:04 Dose: 100 mls/hr Potassium Chloride 10 meq/Sodium Bicarbonate 75 meq/Sodium Chloride 1,080 mls @ 75 mls/hr IVPB Q14H [facility] Last Admin: 12/02/16 22:25 Dose: 75 mls/hr Ondansetron HCl (Zofran Injection) 4 mg IVPUSH Q6H PRN PRN Reason: NAUSEA AND/OR VOMITING Last Admin: 12/03/16 11:39 Dose: 4 mg Pantoprazole Sodium (Protonix -) 40 mg PO DAILY [facility] Last Admin: 12/03/16 13:16 Dose: Not Given Sodium Bicarbonate (Sodium Bicarbonate -) 650 mg PO TID [facility] Last Admin: 12/03/16 13:33 Dose: Not Given - Objective Vital Signs: Vital Signs Temperature 97.8 F 12/03/16 08:36 Pulse Rate 78 12/03/16 09:23 Respiratory Rate 20 12/03/16 09:00 Blood Pressure 139/90 12/03/16 08:36 O2 Sat by Pulse Oximetry (%) 98 12/03/16 09:23 Constitutional: Yes: Calm Eyes: Yes: Conjunctiva Clear HENT: Yes: Atraumatic Neck: Yes: Supple Cardiovascular: Yes: S1, S2 Respiratory: Yes: CTA Bilaterally Gastrointestinal: Yes: Soft Genitourinary: Yes: WNL Edema: No Neurological: Yes: Oriented Psychiatric: Yes: Oriented Labs: CBC, BMP 12/03/16 06:00 12/03/16 08:30 INR, PTT INR 1.27 (0.82-1.09) H 11/28/16 15:25 Assessment/Plan Current Medications Generic Name Dose Route Start Last Admin Trade Name Freq PRN Reason Stop Dose Admin Amino Acids 30 ml 11/30/16 08:00 12/03/16 10:03 Prostat Sugar-Free Packet - PO Not Given BID@0800,1730 [facility] Ascorbic Acid 500 mg 12/02/16 22:00 12/03/16 13:16 Vitamin C - PO Not Given BID [facility] Ferrous Sulfate 325 mg 12/03/16 08:00 12/03/16 13:32 Feosol - PO Not Given TIDCM [facility] Folic Acid 1 mg 11/30/16 10:00 12/03/16 13:16 Folic Acid - PO Not Given DAILY [facility] Heparin Sodium (Porcine) 5,000 unit 12/01/16 22:00 12/03/16 14:30 Heparin - SQ 5,000 unit TID [facility] Administration Piperacillin Sod/Tazobactam Sod 50 mls @ 100 mls/hr 12/01/16 13:45 12/03/16 10: 04 Zosyn 3.375gm Ivpb (Pre-Docked) IVPB 100 mls/hr Q8H-IV [facility] Administration Potassium Chloride 10 meq/ 1,080 mls @ 75 mls/hr 12/02/16 18:45 12/02/16 22:25 Sodium Bicarbonate 75 meq/ IVPB 75 mls/hr Sodium Chloride Q14H [facility] Administration Potassium Chloride 100 mls @ 100 mls/hr 12/03/16 15:15 Potassium Chloride 10 Meq Premix Ivpb - IVPB 12/03/16 17:14 Q60M [facility] Ondansetron HCl 4 mg 12/03/16 11:04 12/03/16 11:39 Zofran Injection IVPUSH 4 mg Q6H PRN Administration NAUSEA AND/OR VOMITING Pantoprazole Sodium 40 mg 11/30/16 10:00 12/03/16 13:16 Protonix - PO Not Given DAILY [facility] Sodium Bicarbonate 650 mg 12/02/16 18:45 12/03/16 13:33 Sodium Bicarbonate - PO Not Given TID [facility] Laboratory Tests 12/03/16 08:30 Phosphorus 3.3 Magnesium 2.0 Impression 1. CKD 2. failure to thrive 3. UTI 4. lactic acidosis 5. cervical cancer 6. dehydration 7. metabolic acidosis 8. hypokalemia 9. hypomagnesemia Plan - will adjust fluids today - will add dextrose - cont with bicarb - pt is not tolerating diet - replace potassium as needed - will follow Dr Campos
[2016-12-03] MEDS ORDERED: DEXTROSE 5%-WATER - 1,000 ML with SODIUM BICARBONATE 8.4% - 100 MEQ IV SCH ×2 (15:15→17:30)
[2016-12-03] MEDS: KCL 10 MEQ IVPB 100 ML IVPB SCH ×2 (16:03→18:55)
--- NOTE | 2016-12-03 17:01 | PN ---
Progress Note, Physician History of Present Illness: patient better events noted had episode of vomiting and pt was very cold says she does not feel nauseous any more - Current Medication List Current Medications: Active Medications Amino Acids (Prostat Sugar-Free Packet -) 30 ml PO BID@0800,1730 [facility] Last Admin: 12/03/16 10:03 Dose: Not Given Ascorbic Acid (Vitamin C -) 500 mg PO BID [facility] Last Admin: 12/03/16 13:16 Dose: Not Given Ferrous Sulfate (Feosol -) 325 mg PO TIDCM [facility] Last Admin: 12/03/16 13:32 Dose: Not Given Folic Acid (Folic Acid -) 1 mg PO DAILY [facility] Last Admin: 12/03/16 13:16 Dose: Not Given Heparin Sodium (Porcine) (Heparin -) 5,000 unit SQ TID [facility] Last Admin: 12/03/16 14:30 Dose: 5,000 unit Piperacillin Sod/Tazobactam Sod (Zosyn 3.375gm Ivpb (Pre-Docked)) 50 mls @ 100 mls/hr IVPB Q8H-IV [facility] Last Admin: 12/03/16 10:04 Dose: 100 mls/hr Potassium Chloride (Potassium Chloride 10 Meq Premix Ivpb -) 100 mls @ 100 mls/ hr IVPB Q60M [facility] Stop: 12/03/16 17:14 Last Admin: 12/03/16 16:03 Dose: 100 mls/hr Sodium Bicarbonate 100 meq/ (Dextrose) 1,100 mls @ 75 mls/hr IV .Q14H [facility] Ondansetron HCl (Zofran Injection) 4 mg IVPUSH Q6H PRN PRN Reason: NAUSEA AND/OR VOMITING Last Admin: 12/03/16 11:39 Dose: 4 mg Pantoprazole Sodium (Protonix -) 40 mg PO DAILY [facility] Last Admin: 12/03/16 13:16 Dose: Not Given Sodium Bicarbonate (Sodium Bicarbonate -) 650 mg PO TID [facility] Last Admin: 12/03/16 13:33 Dose: Not Given - Objective Vital Signs: Vital Signs Temperature 97.8 F 12/03/16 08:36 Pulse Rate 78 12/03/16 09:23 Respiratory Rate 20 12/03/16 09:00 Blood Pressure 139/90 12/03/16 08:36 O2 Sat by Pulse Oximetry (%) 98 12/03/16 09:23 Constitutional: Yes: No Distress, Calm Cardiovascular: Yes: Regular Rate and Rhythm Respiratory: Yes: Regular, CTA Bilaterally Gastrointestinal: Yes: Normal Bowel Sounds, Soft Musculoskeletal: Yes: WNL Extremities: Yes: WNL Wound/Incision: Yes: Other (decubitus ulcers) Neurological: Yes: Alert, Oriented Psychiatric: Yes: Alert, Oriented Labs: CBC, BMP 12/03/16 06:00 12/03/16 08:30 INR, PTT INR 1.27 (0.82-1.09) H 11/28/16 15:25 Assessment/Plan 71-year-old female, with a significant past medical history of htn, vitamin b12 deficiency, hlp, cervical cancer (status post TAHBSO, with radiation and chemotherapy approximately [address] 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 She was transferred from [place] to [place] ICU for higher LOC. 1. r/o uti 2. Sepsis 3. Failure to thrive 4. Anemia 5. Thrombocytosis 6. Hypoalbuminemia 7. Weakness 8. Hyperglycemia 9. NANY on CKD 10. Hyponatremia l 11. hx htn lactic acidosis bacteremia plan continue zosyn cx result noted
--- NOTE | 2016-12-03 17:09 | PN ---
Physical Exam: SUBJECTIVE: Patient seen and examined. She has been very nauseated. She vomited today. She has refused her po medication OBJECTIVE: Vital Signs Period Temp Pulse Resp BP Sys/Dillon Pulse Ox Last 24 Hr 97.8 F-98.6 F 63-78 20-20 107-139/66-90 98-98 PE Neuro: alert, awake, cn 2-12intact Pulm: diminished, no wheezing CV: s1 s2 rrr no mrg Abd: soft nd nt +bs, no masses appreciated : urostomy present clear urine Ext: cool to touch feet, cap refill>3 secs Laboratory Results - last 24 hr 12/03/16 12/03/16 06:00 08:30 WBC 8.2 RBC 4.43 D Hgb 11.9 D Hct 35.7 D MCV 80.5 MCHC 33.3 RDW 17.4 H Plt Count 353 MPV 6.6 L Neutrophils % 66.0 Lymphocytes % 26.0 D Monocytes % 2.0 L Eosinophils % 3.0 D Band Neutrophils 1.0 D Metamyelocytes 1 Myelocytes 1 Differential Comment Manual diff done [place] Cells 2+ Sodium 140 Potassium 3.8 Chloride 115 H Carbon Dioxide 14 L D Anion Gap 11 BUN 16 Creatinine 2.2 H Creat Clearance w eGFR 21.88 Random Glucose 70 L Calcium 7.7 L Phosphorus 3.3 Magnesium 2.0 Total Bilirubin 0.6 AST 17 D ALT 14 Alkaline Phosphatase 76 D Total Protein 5.5 L D Albumin 1.4 L Active Medications Generic Name Dose Route Start Last Admin Trade Name Freq PRN Reason Stop Dose Admin Amino Acids 30 ml 11/30/16 08:00 12/03/16 10:03 Prostat Sugar-Free Packet - PO Not Given BID@0800,1730 [facility] Ascorbic Acid 500 mg 12/02/16 22:00 12/03/16 13:16 Vitamin C - PO Not Given BID [facility] Ferrous Sulfate 325 mg 12/03/16 08:00 12/03/16 13:32 Feosol - PO Not Given TIDCM [facility] Folic Acid 1 mg 11/30/16 10:00 12/03/16 13:16 Folic Acid - PO Not Given DAILY [facility] Heparin Sodium (Porcine) 5,000 unit 12/01/16 22:00 12/03/16 14:30 Heparin - SQ 5,000 unit TID [facility] Administration Piperacillin Sod/Tazobactam Sod 50 mls @ 100 mls/hr 12/01/16 13:45 12/03/16 10: 04 Zosyn 3.375gm Ivpb (Pre-Docked) IVPB 100 mls/hr Q8H-IV [facility] Administration Potassium Chloride 100 mls @ 100 mls/hr 12/03/16 15:15 12/03/16 16:03 Potassium Chloride 10 Meq Premix Ivpb - IVPB 12/03/16 17:14 100 mls/hr Q60M [facility] Administration Sodium Bicarbonate 100 meq/ 1,100 mls @ 75 mls/hr 12/03/16 15:15 Dextrose IV .Q14H [facility] Ondansetron HCl 4 mg 12/03/16 11:04 12/03/16 11:39 Zofran Injection IVPUSH 4 mg Q6H PRN Administration NAUSEA AND/OR VOMITING Pantoprazole Sodium 40 mg 11/30/16 10:00 12/03/16 13:16 Protonix - PO Not Given DAILY [facility] Sodium Bicarbonate 650 mg 12/02/16 18:45 12/03/16 13:33 Sodium Bicarbonate - PO Not Given TID [facility] Microbiology 11/30/16 15:45 Blood Culture - Preliminary Blood - Peripheral Venous NO GROWTH OBTAINED AFTER 72 HOURS, INCUBATION TO CONTINUE FOR 2 DAYS. 11/30/16 15:45 Blood Culture - Preliminary Blood - Peripheral Venous NO GROWTH OBTAINED AFTER 72 HOURS, INCUBATION TO CONTINUE FOR 2 DAYS. 11/29/16 14:45 Blood Culture - Preliminary Blood - Peripheral Venous NO GROWTH OBTAINED AFTER 96 HOURS, INCUBATION TO CONTINUE FOR 1 DAYS. 11/28/16 15:25 Blood Culture - Final Blood - Peripheral Venous Beta Hem Streptococcus Group F 11/28/16 18:05 Blood Culture - Final Blood - Peripheral Venous Beta Hem Streptococcus Group F 11/29/16 14:35 Blood Culture - Preliminary Blood - Peripheral Venous NO GROWTH OBTAINED AFTER 72 HOURS, INCUBATION TO CONTINUE FOR 2 DAYS. ABX - s/p 4 doses Vanco Assessment: 71 year old female with pmhx of cervical cancer (s/p TAHBSO, s/p RT and chemotherapy apx 35 years ago), s/p urostomy in 2009 2/2 radiation injury admitted to [facility], transferred to [facility] for generalizes weakness, failure to thrive, sepsis. Plan: 1. Sepsis d/t polymicrobial bacteremia and + UTI - Cultures noted - Cont Zosyn 2. 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 Failure to thrive/severe malnutrition - Due to hx of cervical cancer - Cont folate/MVI/nutritional supplements, pt states she has a small appetite 4. Diarrhea - C Diff negative - Collect stool cx, ova parasite - Pt states has been treated for e coli in the past 5. Acute blood loss anemia - Iron studies noted - Cont Ferrous sulfate - s/p 1uprbc 12/01, appropriate rise 6. Electrolytes Hypokalemia: Will give x2 10meq rider IV Hypomagnesmia: Resolved 7. Wounds - Coccyx stage II, R buttock eschar, reddened b/l buttocks Dispo: - Daughter mary [phone] Visit type - Emergency Visit Emergency Visit: Yes ED Registration Date: 11/28/16 Care time: The patient presented to the Emergency Department on the above date and was hospitalized for further evaluation of their emergent condition. - New Patient This patient is new to me today: No - Critical Care Critical Care patient: No - Discharge Referral Referred to [facility] Med P.C.: No
[2016-12-04] MEDS: PIPERACILLIN/TAZOB 3.375 GM 50 ML IVPB SCH ×3 (02:45→18:01)
[2016-12-04] MEDS: SODIUM BICARBONATE 650 MG TABLET PO SCH ×3 (06:10→21:07)
[2016-12-04] MEDS: HEPARIN NA (PORCINE) 5,000 UNITS/ML 1ML VIAL SQ SCH ×3 (06:13→21:06)
[2016-12-04] MEDS: FOLIC ACID 1 MG TABLET (FP) PO SCH (11:17)
[2016-12-04] MEDS: AMINO ACIDS/PROTEIN HYDROLYS SUGAR-FREE 30 ML PACKET PO SCH ×2 (11:17→17:36)
[2016-12-04] MEDS: FERROUS SO4 325 MG TABLET (FP) PO SCH ×3 (11:17→17:36)
[2016-12-04] MEDS: PANTOPRAZOLE 40 MG TABLET (FP) PO SCH (11:18)
[2016-12-04] MEDS: ASCORBIC ACID 500 MG TABLET (FP) PO SCH ×2 (11:18→21:07)
--- NOTE | 2016-12-04 11:19 | PN ---
Progress Note, Physician History of Present Illness: Pt seen and examined at bedside. She is agitated this morning. She says that her appetite is improved. - Current Medication List Current Medications: Active Medications Amino Acids (Prostat Sugar-Free Packet -) 30 ml PO BID@0800,1730 [facility] Last Admin: 12/03/16 17:20 Dose: Not Given Ascorbic Acid (Vitamin C -) 500 mg PO BID [facility] Last Admin: 12/03/16 22:30 Dose: Not Given Ferrous Sulfate (Feosol -) 325 mg PO TIDCM [facility] Last Admin: 12/03/16 17:20 Dose: Not Given Folic Acid (Folic Acid -) 1 mg PO DAILY [facility] Last Admin: 12/03/16 13:16 Dose: Not Given Heparin Sodium (Porcine) (Heparin -) 5,000 unit SQ TID [facility] Last Admin: 12/04/16 06:13 Dose: 5,000 unit Piperacillin Sod/Tazobactam Sod (Zosyn 3.375gm Ivpb (Pre-Docked)) 50 mls @ 100 mls/hr IVPB Q8H-IV [facility] Last Admin: 12/04/16 02:45 Dose: 100 mls/hr Sodium Bicarbonate 100 meq/ (Dextrose) 1,100 mls @ 75 mls/hr IV Q14H [facility] Last Admin: 12/03/16 18:45 Dose: 75 mls/hr Ondansetron HCl (Zofran Injection) 4 mg IVPUSH Q6H PRN PRN Reason: NAUSEA AND/OR VOMITING Last Admin: 12/03/16 17:20 Dose: 4 mg Pantoprazole Sodium (Protonix -) 40 mg PO DAILY [facility] Last Admin: 12/03/16 13:16 Dose: Not Given Sodium Bicarbonate (Sodium Bicarbonate -) 650 mg PO TID [facility] Last Admin: 12/04/16 06:10 Dose: Not Given - Objective Vital Signs: Vital Signs Temperature 97.6 F 12/04/16 06:20 Pulse Rate 69 12/04/16 06:20 Respiratory Rate 18 12/04/16 06:20 Blood Pressure 96/64 12/04/16 06:20 O2 Sat by Pulse Oximetry (%) 98 12/03/16 21:00 Constitutional: Yes: Anxious Eyes: Yes: Conjunctiva Clear HENT: Yes: Atraumatic Neck: Yes: Supple Cardiovascular: Yes: S1, S2 Respiratory: Yes: CTA Bilaterally Gastrointestinal: Yes: Soft Musculoskeletal: Yes: Muscle Weakness Edema: No Neurological: Yes: Oriented Psychiatric: Yes: Oriented Labs: CBC, BMP 12/03/16 06:00 12/03/16 08:30 INR, PTT INR 1.27 (0.82-1.09) H 11/28/16 15:25 Assessment/Plan Current Medications Generic Name Dose Route Start Last Admin Trade Name Freq PRN Reason Stop Dose Admin Amino Acids 30 ml 11/30/16 08:00 12/03/16 17:20 Prostat Sugar-Free Packet - PO Not Given BID@0800,1730 [facility] Ascorbic Acid 500 mg 12/02/16 22:00 12/03/16 22:30 Vitamin C - PO Not Given BID [facility] Ferrous Sulfate 325 mg 12/03/16 08:00 12/03/16 17:20 Feosol - PO Not Given TIDCM [facility] Folic Acid 1 mg 11/30/16 10:00 12/03/16 13:16 Folic Acid - PO Not Given DAILY [facility] Heparin Sodium (Porcine) 5,000 unit 12/01/16 22:00 12/04/16 06:13 Heparin - SQ 5,000 unit TID [facility] Administration Piperacillin Sod/Tazobactam Sod 50 mls @ 100 mls/hr 12/01/16 13:45 12/04/16 02: 45 Zosyn 3.375gm Ivpb (Pre-Docked) IVPB 100 mls/hr Q8H-IV [facility] Administration Sodium Bicarbonate 100 meq/ 1,100 mls @ 75 mls/hr 12/03/16 17:30 12/03/16 18:45 Dextrose IV 75 mls/hr Q14H [facility] Administration Ondansetron HCl 4 mg 12/03/16 11:04 12/03/16 17:20 Zofran Injection IVPUSH 4 mg Q6H PRN Administration NAUSEA AND/OR VOMITING Pantoprazole Sodium 40 mg 11/30/16 10:00 12/03/16 13:16 Protonix - PO Not Given DAILY [facility] Sodium Bicarbonate 650 mg 12/02/16 18:45 12/04/16 06:10 Sodium Bicarbonate - PO Not Given TID [facility] Impression 1. CKD 2. failure to thrive 3. UTI 4. lactic acidosis 5. cervical cancer 6. dehydration 7. metabolic acidosis 8. hypokalemia 9. hypomagnesemia Plan - will need to check bmp as pt is on fluids - she says she wants to go home - encourage PO intake - can stop fluids until labs are reviewed - replace potassium as needed - will follow Dr Campos
--- NOTE | 2016-12-04 11:23 | PN ---
Progress Note (short form) - Note Progress Note: Renal addendum - pt refused labs this morning and is refusing labs no. She does not want fluids either. Pt says she wants to go home. Dr Campos
--- NOTE | 2016-12-04 11:32 | PN ---
Physical Exam: SUBJECTIVE: Patient seen and examined. She has proven to be difficult with the nursing staff. She says she is going to leave today and her daughter will take her to a NH. I advised pt if she is to leave it will be AMA. I then had a d/w daughter Naida who has no plans on taking her anywhere. I had d/w pt who states she is sorry for her behavior and will comply with the medical staff. Her main complaint is the lack of heat in the room. OBJECTIVE: Vital Signs Period Temp Pulse Resp BP Sys/Dillon Pulse Ox Last 24 Hr 97 F-97.9 F 69-82 18-20 96-147/64-78 98 PE Gen: emaciated Neuro: alert, awake, cn 2-12intact Pulm: diminished CV: s1 s2 rrr no mrg Abd: soft nd nt +bs : urostomy cdi Ext: cool to touch feet, cap refill>3 secs Active Medications Generic Name Dose Route Start Last Admin Trade Name Freq PRN Reason Stop Dose Admin Amino Acids 30 ml 11/30/16 08:00 12/04/16 11:17 Prostat Sugar-Free Packet - PO Not Given BID@0800,1730 MIKE Ascorbic Acid 500 mg 12/02/16 22:00 12/04/16 11:18 Vitamin C - PO Not Given BID MIKE Ferrous Sulfate 325 mg 12/03/16 08:00 12/04/16 11:17 Feosol - PO Not Given TIDCM MIKE Folic Acid 1 mg 11/30/16 10:00 12/04/16 11:17 Folic Acid - PO Not Given DAILY MIKE Heparin Sodium (Porcine) 5,000 unit 12/01/16 22:00 12/04/16 06:13 Heparin - SQ 5,000 unit TID MIKE Administration Piperacillin Sod/Tazobactam Sod 50 mls @ 100 mls/hr 12/01/16 13:45 12/04/16 11: 18 Zosyn 3.375gm Ivpb (Pre-Docked) IVPB 100 mls/hr Q8H-IV MIKE Administration Sodium Bicarbonate 100 meq/ 1,100 mls @ 75 mls/hr 12/03/16 17:30 12/03/16 18:45 Dextrose IV 75 mls/hr Q14H MIKE Administration Ondansetron HCl 4 mg 12/03/16 11:04 12/03/16 17:20 Zofran Injection IVPUSH 4 mg Q6H PRN Administration NAUSEA AND/OR VOMITING Pantoprazole Sodium 40 mg 11/30/16 10:00 12/04/16 11:18 Protonix - PO Not Given DAILY MIKE Sodium Bicarbonate 650 mg 12/02/16 18:45 12/04/16 06:10 Sodium Bicarbonate - PO Not Given TID MIKE ABX - s/p 4 doses Vanco Assessment: 71 year old female with pmhx of cervical cancer (s/p TAHBSO, s/p RT and chemotherapy apx 35 years ago), 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 Plan: 1. Sepsis d/t polymicrobial bacteremia (Beta heme strep group F) and + UTI ( proteus vulgais) - Cont Zosyn per ID 2. NANY on CKD stage 4/non gap metabolic acidosis (ileal conduit, CKD, diarrhea) - Continue d5 with 100meq bicarb at 75cc/hr - Sodium bicarb 650 TID - Follow up AM BMP - Will call renal with results 3. Failure to thrive/severe malnutrition - Due to hx of cervical cancer - Cont folate/MVI/nutritional supplements, pt states she has a small appetite 4. Diarrhea - C Diff negative - Collect stool cx, ova parasite - Pt states has been treated for e coli in the past 5. Acute blood loss anemia - Cont Ferrous sulfate - s/p 1uprbc 12/01 6. Electrolytes Hypokalemia: AM labs pending 7. Wounds - Coccyx stage II, R buttock eschar, reddened b/l buttocks Dispo: - Daughter Naida [phone] Visit type - Emergency Visit Emergency Visit: Yes ED Registration Date: 11/28/16 Care time: The patient presented to the Emergency Department on the above date and was hospitalized for further evaluation of their emergent condition. - New Patient This patient is new to me today: No - Critical Care Critical Care patient: No - Discharge Referral Referred to [facility] Med P.C.: No
[2016-12-04 12:17] LABS: CALCIUM 7.3 mg/dL (8.5-10.1); CREATININE 2.3 mg/dL (0.55-1.02); MAGNESIUM 1.9 mg/dL (1.8-2.4)
--- NOTE | 2016-12-04 15:31 | PN ---
Progress Note, Physician History of Present Illness: patient better events noted patient was upset she was telling me about it - Current Medication List Current Medications: Active Medications Amino Acids (Prostat Sugar-Free Packet -) 30 ml PO BID@0800,1730 [facility] Last Admin: 12/04/16 11:17 Dose: Not Given Ascorbic Acid (Vitamin C -) 500 mg PO BID [facility] Last Admin: 12/04/16 11:18 Dose: Not Given Ferrous Sulfate (Feosol -) 325 mg PO TIDCM [facility] Last Admin: 12/04/16 12:18 Dose: Not Given Folic Acid (Folic Acid -) 1 mg PO DAILY [facility] Last Admin: 12/04/16 11:17 Dose: Not Given Heparin Sodium (Porcine) (Heparin -) 5,000 unit SQ TID [facility] Last Admin: 12/04/16 06:13 Dose: 5,000 unit Piperacillin Sod/Tazobactam Sod (Zosyn 3.375gm Ivpb (Pre-Docked)) 50 mls @ 100 mls/hr IVPB Q8H-IV [facility] Last Admin: 12/04/16 11:18 Dose: 100 mls/hr Potassium Chloride/Sodium Chloride (1/2ns+20meq Kcl) 1,000 mls @ 75 mls/hr IV ASDIR [facility] Ondansetron HCl (Zofran Injection) 4 mg IVPUSH Q6H PRN PRN Reason: NAUSEA AND/OR VOMITING Last Admin: 12/03/16 17:20 Dose: 4 mg Pantoprazole Sodium (Protonix -) 40 mg PO DAILY [facility] Last Admin: 12/04/16 11:18 Dose: Not Given Sodium Bicarbonate (Sodium Bicarbonate -) 650 mg PO TID [facility] Last Admin: 12/04/16 14:34 Dose: Not Given - Objective Vital Signs: Vital Signs Temperature 97.6 F 12/04/16 06:20 Pulse Rate 69 12/04/16 06:20 Respiratory Rate 18 12/04/16 06:20 Blood Pressure 96/64 12/04/16 06:20 O2 Sat by Pulse Oximetry (%) 98 12/03/16 21:00 Constitutional: Yes: No Distress, Calm Respiratory: Yes: Regular, CTA Bilaterally Gastrointestinal: Yes: Normal Bowel Sounds, Soft Musculoskeletal: Yes: WNL Extremities: Yes: WNL Neurological: Yes: Alert, Oriented Psychiatric: Yes: Alert Labs: CBC, BMP 12/03/16 06:00 12/04/16 11:50 INR, PTT INR 1.27 (0.82-1.09) H 11/28/16 15:25 Assessment/Plan 71-year-old female, with a significant past medical history of htn, vitamin b12 deficiency, hlp, cervical cancer (status post TAHBSO, with radiation and chemotherapy approximately 35 years ago at [facility], apparently in remission according to the patient), right sided urostomy in place (placed in 2009 secondary to radiation injury) admitted for eval of their emergent condition. She was transferred from [place] to [place] ICU for higher LOC. 1. r/o uti 2. Sepsis 3. Failure to thrive 4. Anemia 5. Thrombocytosis 6. Hypoalbuminemia 7. Weakness 8. Hyperglycemia 9. NANY on CKD 10. Hyponatremia l 11. hx htn lactic acidosis bacteremia plan continue zosyn cx result noted will stop zosyn on wednesday patient repeat cx ahve been negative so far
[2016-12-04] MEDS: SODIUM CHLORIDE 0.45%/POT 1,000 ML IV SCH (18:00)
[2016-12-05] MEDS: PIPERACILLIN/TAZOB 3.375 GM 50 ML IVPB SCH ×3 (01:40→19:04)
[2016-12-05] MEDS: SODIUM BICARBONATE 650 MG TABLET PO SCH ×3 (06:47→22:44)
[2016-12-05] MEDS: HEPARIN NA (PORCINE) 5,000 UNITS/ML 1ML VIAL SQ SCH ×3 (06:50→22:41)
--- NOTE | 2016-12-05 10:46 | PN ---
Physical Exam: SUBJECTIVE: Patient seen and examined. Pt is in agreeable mood today, she apologizes for her behavior she just wants to go home. She denies fever, chills , diarrhea today. She said she will try to move to [facility] but she is weak and its hard for her to stand OBJECTIVE: Vital Signs Period Temp Pulse Resp BP Sys/Dillon Pulse Ox Last 24 Hr 97.7 F-98.8 F 66-66 16-20 93-104/61-72 PE Gen: conversational Neuro: alert, awake, cn 2-12intact Pulm: diminished CV: s1 s2 rrr no mrg Abd: soft nd nt +bs : urostomy cdi Ext: cool to touch feet, cap refill>3 secs Laboratory Results - last 24 hr 12/01/16 12/04/16 08:05 11:50 Sodium 142 Potassium 3.0 L D Chloride 108 H Carbon Dioxide 17 L D Anion Gap 17 H BUN 17 Creatinine 2.3 H Random Glucose 116 H D Calcium 7.3 L Magnesium 1.9 Blood Type O POSITIVE Antibody Screen Negative Crossmatch See Detail Active Medications Generic Name Dose Route Start Last Admin Trade Name Freq PRN Reason Stop Dose Admin Amino Acids 30 ml 11/30/16 08:00 12/04/16 17:36 Prostat Sugar-Free Packet - PO Not Given BID@0800,1730 [facility] Ascorbic Acid 500 mg 12/02/16 22:00 12/04/16 21:07 Vitamin C - PO Not Given BID [facility] Ferrous Sulfate 325 mg 12/03/16 08:00 12/04/16 17:36 Feosol - PO Not Given TIDCM [facility] Folic Acid 1 mg 11/30/16 10:00 12/04/16 11:17 Folic Acid - PO Not Given DAILY MIKE Heparin Sodium (Porcine) 5,000 unit 12/01/16 22:00 12/05/16 06:50 Heparin - SQ 5,000 unit TID MIKE Administration Piperacillin Sod/Tazobactam Sod 50 mls @ 100 mls/hr 12/01/16 13:45 12/05/16 01: 40 Zosyn 3.375gm Ivpb (Pre-Docked) IVPB 100 mls/hr Q8H-IV MIKE Administration Potassium Chloride/Sodium Chloride 1,000 mls @ 75 mls/hr 12/04/16 14:15 18:00 1/2ns+20meq Kcl IV 75 mls/hr ASDIR MIKE Administration Ondansetron HCl 4 mg 12/03/16 11:04 12/03/16 17:20 Zofran Injection IVPUSH 4 mg Q6H PRN Administration NAUSEA AND/OR VOMITING Pantoprazole Sodium 40 mg 11/30/16 10:00 12/04/16 11:18 Protonix - PO Not Given DAILY MIKE Sodium Bicarbonate 650 mg 12/02/16 18:45 12/05/16 06:47 Sodium Bicarbonate - PO Not Given TID MIKE Assessment: 71 year old female with pmhx of cervical cancer (s/p TAHBSO, s/p RT and chemotherapy apx 35 years ago), 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 Plan: 1. Sepsis d/t polymicrobial bacteremia (Beta heme strep group F) and + UTI ( proteus vulgais) - Per ID, continue zosyn through Wednesday 2. NANY on CKD stage 4/non gap metabolic acidosis (ileal conduit, CKD, diarrhea) - d5 1/2 NS w 20meq @75cc/hr - Awaiting morning BMP - Sodium bicarb 650 TID (has been refusing PO meds) - Renal seeing 3. Failure to thrive/severe malnutrition - Due to hx of cervical cancer - Cont folate/MVI/nutritional supplements, pt states she has a small appetite 4. Diarrhea - Improving - C Diff negative - stool cx, ova parasite pending - Pt states has been treated for e coli in the past 5. Acute blood loss anemia - Cont Ferrous sulfate - s/p 1uprbc 12/01 6. Electrolytes Hypokalemia: Repletion with fluids, will f/u am labs 7. Wounds - Coccyx stage II, b/l buttocks - Continue q2hr positional changes, barrier cream Dispo - Patient will need and is agreeable to Sub acute rehab, has not moved from bed in 1 week - Daughter Naida [phone] Visit type - Emergency Visit Emergency Visit: Yes ED Registration Date: 11/28/16 Care time: The patient presented to the Emergency Department on the above date and was hospitalized for further evaluation of their emergent condition. - New Patient This patient is new to me today: No - Critical Care Critical Care patient: No
[2016-12-05 11:21] LABS: CALCIUM 7.2 mg/dL (8.5-10.1); CREATININE 2.1 mg/dL (0.55-1.02); MAGNESIUM 1.8 mg/dL (1.8-2.4)
[2016-12-05] MEDS ORDERED: POTASSIUM CHLORIDE 40 MEQ/30 ML UNIT DOSE CUP PO ONE (13:00)
[2016-12-05] MEDS: FERROUS SO4 325 MG TABLET (FP) PO SCH ×3 (13:13→19:07)
[2016-12-05] MEDS: FOLIC ACID 1 MG TABLET (FP) PO SCH (13:14)
[2016-12-05] MEDS: AMINO ACIDS/PROTEIN HYDROLYS SUGAR-FREE 30 ML PACKET PO SCH ×2 (13:14→19:07)
[2016-12-05] MEDS: PANTOPRAZOLE 40 MG TABLET (FP) PO SCH (13:14)
[2016-12-05] MEDS: ASCORBIC ACID 500 MG TABLET (FP) PO SCH ×2 (13:14→22:44)
--- NOTE | 2016-12-05 13:54 | PN ---
Progress Note, Physician History of Present Illness: patient stable no events - Current Medication List Current Medications: Active Medications Amino Acids (Prostat Sugar-Free Packet -) 30 ml PO BID@0800,1730 [facility] Last Admin: 12/05/16 13:14 Dose: Not Given Ascorbic Acid (Vitamin C -) 500 mg PO BID [facility] Last Admin: 12/05/16 13:14 Dose: Not Given Ferrous Sulfate (Feosol -) 325 mg PO TIDCM [facility] Last Admin: 12/05/16 13:14 Dose: Not Given Folic Acid (Folic Acid -) 1 mg PO DAILY [facility] Last Admin: 12/05/16 13:14 Dose: Not Given Heparin Sodium (Porcine) (Heparin -) 5,000 unit SQ TID [facility] Last Admin: 12/05/16 13:14 Dose: Not Given Piperacillin Sod/Tazobactam Sod (Zosyn 3.375gm Ivpb (Pre-Docked)) 50 mls @ 100 mls/hr IVPB Q8H-IV [facility] Last Admin: 12/05/16 13:14 Dose: 100 mls/hr Potassium Chloride/Sodium Chloride (1/2ns+20meq Kcl) 1,000 mls @ 75 mls/hr IV ASDIR [facility] Last Admin: 12/04/16 18:00 Dose: 75 mls/hr Megestrol Acetate (Megace Oral Suspension -) 400 mg PO DAILY [facility] Multivitamins/Minerals (Infuvite Adult -) 10 ml IV DAILY [facility] Ondansetron HCl (Zofran Injection) 4 mg IVPUSH Q6H PRN PRN Reason: NAUSEA AND/OR VOMITING Last Admin: 12/03/16 17:20 Dose: 4 mg Pantoprazole Sodium (Protonix -) 40 mg PO DAILY [facility] Last Admin: 12/05/16 13:14 Dose: 40 mg Sodium Bicarbonate (Sodium Bicarbonate -) 650 mg PO TID [facility] Last Admin: 12/05/16 13:15 Dose: Not Given - Objective Vital Signs: Vital Signs Temperature 98.8 F 12/04/16 21:10 Pulse Rate 66 12/04/16 21:10 Respiratory Rate 20 12/04/16 21:10 Blood Pressure 104/72 12/04/16 21:10 O2 Sat by Pulse Oximetry (%) 98 12/03/16 21:00 Constitutional: Yes: No Distress, Calm Eyes: Yes: Conjunctiva Clear Cardiovascular: Yes: Regular Rate and Rhythm Respiratory: Yes: Regular, CTA Bilaterally Gastrointestinal: Yes: Normal Bowel Sounds, Soft Musculoskeletal: Yes: WNL Extremities: Yes: WNL Wound/Incision: Yes: Other (decubitus ulcer) Neurological: Yes: Alert, Oriented Psychiatric: Yes: Alert Labs: CBC, BMP 12/03/16 06:00 12/05/16 10:45 INR, PTT INR 1.27 (0.82-1.09) H 11/28/16 15:25 Assessment/Plan 71-year-old female, with a significant past medical history of htn, vitamin b12 deficiency, hlp, cervical cancer (status post TAHBSO, with radiation and chemotherapy approximately 35 years ago at [facility], apparently in remission according to the patient), right sided urostomy in place (placed in 2009 secondary to radiation injury) admitted for eval of their emergent condition. She was transferred from [place] to [place] ICU for higher LOC. 1. r/o uti 2. Sepsis 3. Failure to thrive 4. Anemia 5. Thrombocytosis 6. Hypoalbuminemia 7. Weakness 8. Hyperglycemia 9. NANY on CKD 10. Hyponatremia l 11. hx htn lactic acidosis bacteremia plan finish abx as planned rest as per medical team
[2016-12-05] MEDS ORDERED: MULTIVIT INJ. ADULT COMBO WITH VIT K 1 COMBO 10 ML VIAL IV SCH (14:00)
[2016-12-05] MEDS ORDERED: POTASSIUM CHLORIDE TABS 20 MEQ TABLET.ER (FP) PO ONE (15:31)
--- NOTE | 2016-12-05 15:33 | PN ---
Progress Note, Physician History of Present Illness: Renal F/U Pt lying flat in bed and is only c/o feeling cold - Current Medication List Current Medications: Active Medications Amino Acids (Prostat Sugar-Free Packet -) 30 ml PO BID@0800,1730 [facility] Last Admin: 12/05/16 13:14 Dose: Not Given Ascorbic Acid (Vitamin C -) 500 mg PO BID [facility] Last Admin: 12/05/16 13:14 Dose: Not Given Ferrous Sulfate (Feosol -) 325 mg PO TIDCM [facility] Last Admin: 12/05/16 13:14 Dose: Not Given Folic Acid (Folic Acid -) 1 mg PO DAILY [facility] Last Admin: 12/05/16 13:14 Dose: Not Given Heparin Sodium (Porcine) (Heparin -) 5,000 unit SQ TID [facility] Last Admin: 12/05/16 13:14 Dose: Not Given Piperacillin Sod/Tazobactam Sod (Zosyn 3.375gm Ivpb (Pre-Docked)) 50 mls @ 100 mls/hr IVPB Q8H-IV [facility] Last Admin: 12/05/16 13:14 Dose: 100 mls/hr Potassium Chloride/Sodium Chloride (1/2ns+20meq Kcl) 1,000 mls @ 75 mls/hr IV ASDIR [facility] Last Admin: 12/04/16 18:00 Dose: 75 mls/hr Megestrol Acetate (Megace Oral Suspension -) 400 mg PO DAILY [facility] Multivitamins/Minerals/Vitamin C (Tab-A-Vit -) 1 tab PO DAILY [facility] Ondansetron HCl (Zofran Injection) 4 mg IVPUSH Q6H PRN PRN Reason: NAUSEA AND/OR VOMITING Last Admin: 12/03/16 17:20 Dose: 4 mg Pantoprazole Sodium (Protonix -) 40 mg PO DAILY [facility] Last Admin: 12/05/16 13:14 Dose: 40 mg Sodium Bicarbonate (Sodium Bicarbonate -) 650 mg PO TID [facility] Last Admin: 12/05/16 13:15 Dose: Not Given - Objective Vital Signs: Vital Signs Temperature 98.8 F 12/04/16 21:10 Pulse Rate 66 12/04/16 21:10 Respiratory Rate 20 12/04/16 21:10 Blood Pressure 104/72 12/04/16 21:10 O2 Sat by Pulse Oximetry (%) 98 12/03/16 21:00 Constitutional: Yes: No Distress Cardiovascular: Yes: S1, S2 Respiratory: Yes: CTA Bilaterally Gastrointestinal: Yes: Soft, Other (RLQ Urostomy bag in place) Edema: No Labs: CBC, BMP 12/03/16 06:00 12/05/16 10:45 INR, PTT INR 1.27 (0.82-1.09) H 11/28/16 15:25 Assessment/Plan Impression CKD Hypokalemia with some loose stools as per pt Failure to thrive UTI Cervical cancer Dehydration Plan Additional KCL ordered NaHCO3 as ordered for now Repeat labs with magnesium level in the am Dr Neely
[2016-12-05] MEDS: SODIUM CHLORIDE 0.45%/POT 1,000 ML IV SCH (19:06)
[2016-12-05] MEDS: MEGESTROL ACETATE 400 MG/10 ML UNIT DOSE CUP PO SCH (19:06)
[2016-12-05] MEDS: MULTIVITAMINS (DAILY MVI) TABLET (FP) PO SCH (19:07)
[2016-12-06] MEDS: PIPERACILLIN/TAZOB 3.375 GM 50 ML IVPB SCH ×3 (01:42→18:24)
[2016-12-06] MEDS: SODIUM BICARBONATE 650 MG TABLET PO SCH ×3 (06:45→21:56)
[2016-12-06] MEDS: HEPARIN NA (PORCINE) 5,000 UNITS/ML 1ML VIAL SQ SCH ×3 (06:45→21:53)
[2016-12-06 09:01] LABS: BASOPHIL 0.5 % (0-2.0); EOSINOPHIL 0.8 % (0-4.5); MCH 26.3 pg (25.7-33.7); MCHC 32.3 g/dl (32.0-36.0); MEAN CELL VOLUME 81.5 fl (80-96); MEAN PLT VOLUME 6.6 fl (7.5-11.1); PLATELET COUNT 350 K/MM3 (134-434); RDW 18.2 % (11.6-15.6); WHITE BLOOD COUNT 9.3 K/mm3 (4.0-10.0)
[2016-12-06 09:28] LABS: ALBUMIN 1.4 g/dl (3.4-5.0); BILIRUBIN,TOTAL 0.3 mg/dL (0.2-1.0); CALCIUM 7.8 mg/dL (8.5-10.1); CREATININE 1.9 mg/dL (0.55-1.02); MAGNESIUM 1.8 mg/dL (1.8-2.4); TOT PROT 5.3 g/dl (6.4-8.2)
[2016-12-06] MEDS: MEGESTROL ACETATE 400 MG/10 ML UNIT DOSE CUP PO SCH (11:07)
[2016-12-06] MEDS: ASCORBIC ACID 500 MG TABLET (FP) PO SCH ×2 (11:07→21:56)
[2016-12-06] MEDS: PANTOPRAZOLE 40 MG TABLET (FP) PO SCH (11:07)
[2016-12-06] MEDS: MULTIVITAMINS (DAILY MVI) TABLET (FP) PO SCH (11:07)
[2016-12-06] MEDS: AMINO ACIDS/PROTEIN HYDROLYS SUGAR-FREE 30 ML PACKET PO SCH ×2 (11:07→18:17)
[2016-12-06] MEDS: FOLIC ACID 1 MG TABLET (FP) PO SCH (11:07)
[2016-12-06] MEDS: FERROUS SO4 325 MG TABLET (FP) PO SCH ×3 (11:07→18:17)
--- NOTE | 2016-12-06 12:35 | PN ---
Physical Exam: SUBJECTIVE: Patient seen and examined. She will only take one more dose of abx, she wants to go home, she did not sit in chair yesterday. OBJECTIVE: Vital Signs Period Temp Pulse Resp BP Sys/Dillon Pulse Ox Last 24 Hr 97.2 F-97.8 F 61-70 16-18 119-136/68-75 97 PE Gen: Agitated Neuro: alert, awake, cn 2-12intact Pulm: clear anteriorly CV: s1 s2 rrr no mrg Abd: soft nd nt +bs : urostomy cdi Ext: cool to touch feet, Laboratory Results - last 24 hr 12/06/16 12/06/16 08:30 08:30 WBC 9.3 RBC 4.26 Hgb 11.2 Hct 34.7 MCV 81.5 MCHC 32.3 RDW 18.2 H Plt Count 350 MPV 6.6 L Neutrophils % 80.0 D Lymphocytes % 13.9 D Monocytes % 4.8 D Eosinophils % 0.8 Basophils % 0.5 Sodium 139 Potassium 3.4 L Chloride 112 H Carbon Dioxide 16 L Anion Gap 11 BUN 14 Creatinine 1.9 H Creat Clearance w eGFR 25.91 Random Glucose 115 H D Calcium 7.8 L Magnesium 1.8 Total Bilirubin 0.3 D AST 11 L D ALT 11 L D Alkaline Phosphatase 60 D Total Protein 5.3 L Albumin 1.4 L Active Medications Generic Name Dose Route Start Last Admin Trade Name Freq PRN Reason Stop Dose Admin Amino Acids 30 ml 11/30/16 08:00 12/06/16 11:07 Prostat Sugar-Free Packet - PO Not Given BID@0800,1730 [facility] Ascorbic Acid 500 mg 12/02/16 22:00 12/06/16 11:07 Vitamin C - PO Not Given BID [facility] Ferrous Sulfate 325 mg 12/03/16 08:00 12/06/16 11:07 Feosol - PO Not Given TIDCM [facility] Folic Acid 1 mg 11/30/16 10:00 12/06/16 11:07 Folic Acid - PO Not Given DAILY [facility] Heparin Sodium (Porcine) 5,000 unit 12/01/16 22:00 12/06/16 06:45 Heparin - SQ 5,000 unit TID [facility] Administration Piperacillin Sod/Tazobactam Sod 50 mls @ 100 mls/hr 12/01/16 13:45 12/06/16 10: 38 Zosyn 3.375gm Ivpb (Pre-Docked) IVPB 100 mls/hr Q8H-IV MIKE Administration Potassium Chloride/Sodium Chloride 1,000 mls @ 75 mls/hr 12/04/16 14:15 19:06 1/2ns+20meq Kcl IV 75 mls/hr ASDIR MIKE Administration Megestrol Acetate 400 mg 12/05/16 14:00 12/06/16 11:07 Megace Oral Suspension - PO Not Given DAILY [facility] Multivitamins/Minerals/Vitamin C 1 tab 12/05/16 14:45 12/06/16 11:07 Tab-A-Vit - PO Not Given DAILY [facility] Ondansetron HCl 4 mg 12/03/16 11:04 12/03/16 17:20 Zofran Injection IVPUSH 4 mg Q6H PRN Administration NAUSEA AND/OR VOMITING Pantoprazole Sodium 40 mg 11/30/16 10:00 12/06/16 11:07 Protonix - PO Not Given DAILY [facility] Potassium Chloride 20 meq 12/06/16 12:23 Kcl Oral Solution - PO 12/06/16 12:24 ONCE ONE Sodium Bicarbonate 650 mg 12/02/16 18:45 12/06/16 06:45 Sodium Bicarbonate - PO Not Given TID [facility] Microbiology 12/04/16 16:30 Stool Salmonella/Shigella Culture - Preliminary Yeast Like Organism Assessment: 71 year old female with pmhx of cervical cancer (s/p TAHBSO, s/p RT and chemotherapy ~35 years ago), 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 Plan: 1. Sepsis d/t polymicrobial bacteremia (Beta heme strep group F) and + UTI ( proteus vulgais) - Final day of Zosyn (total 6 days) 2. NANY on CKD stage 4/non gap metabolic acidosis (ileal conduit, CKD, diarrhea) - Improved - d5 1/2 NS w 20meq @75cc/hr - Sodium bicarb 650 TID - Replete potassium 20meq PO 3. Failure to thrive/severe malnutrition d/t hx of cervical cancer - Long discussion with patient and daughter at bedside, pt adamant she wants to go home vs. [facility], they want time to discuss further as she has decomensated. - Cont folate/MVI/nutritional supplements 4. Diarrhea - Prelim stool cx salmonella with yeast organism 5. Acute blood loss anemia - Cont Ferrous sulfate - s/p 1uprbc 12/01 6. Wounds - Coccyx stage II, b/l buttocks - Continue q2hr positional changes, barrier cream Dispo - Daughter Naida [phone] Visit type - Emergency Visit Emergency Visit: Yes ED Registration Date: 11/28/16 Care time: The patient presented to the Emergency Department on the above date and was hospitalized for further evaluation of their emergent condition. - New Patient This patient is new to me today: No - Critical Care Critical Care patient: No
[2016-12-06] MEDS ORDERED: POTASSIUM CHLORIDE 40 MEQ/30 ML UNIT DOSE CUP PO ONE (13:30)
[2016-12-06] MEDS: SODIUM CHLORIDE 0.45%/POT 1,000 ML IV SCH (14:54)
[2016-12-06] MEDS ORDERED: MAGNESIUM SULF 50% (8.12 MEQ/2 ML-1 GM VIAL) IVPB ONE (15:40)
--- NOTE | 2016-12-06 15:40 | PN ---
Progress Note, Physician History of Present Illness: Renal F/U Pt is stable and in no distress Remains hypokalemic and the serum Cr is stable - Current Medication List Current Medications: Active Medications Amino Acids (Prostat Sugar-Free Packet -) 30 ml PO BID@0800,1730 [facility] Last Admin: 12/06/16 11:07 Dose: Not Given Ascorbic Acid (Vitamin C -) 500 mg PO BID [facility] Last Admin: 12/06/16 11:07 Dose: Not Given Ferrous Sulfate (Feosol -) 325 mg PO TIDCM [facility] Last Admin: 12/06/16 14:07 Dose: Not Given Folic Acid (Folic Acid -) 1 mg PO DAILY [facility] Last Admin: 12/06/16 11:07 Dose: Not Given Heparin Sodium (Porcine) (Heparin -) 5,000 unit SQ TID [facility] Last Admin: 12/06/16 06:45 Dose: 5,000 unit Piperacillin Sod/Tazobactam Sod (Zosyn 3.375gm Ivpb (Pre-Docked)) 50 mls @ 100 mls/hr IVPB Q8H-IV [facility] Last Admin: 12/06/16 10:38 Dose: 100 mls/hr Potassium Chloride/Sodium Chloride (1/2ns+20meq Kcl) 1,000 mls @ 75 mls/hr IV ASDIR [facility] Last Admin: 12/06/16 14:54 Dose: Not Given Megestrol Acetate (Megace Oral Suspension -) 400 mg PO DAILY [facility] Last Admin: 12/06/16 11:07 Dose: Not Given Multivitamins/Minerals/Vitamin C (Tab-A-Vit -) 1 tab PO DAILY [facility] Last Admin: 12/06/16 11:07 Dose: Not Given Ondansetron HCl (Zofran Injection) 4 mg IVPUSH Q6H PRN PRN Reason: NAUSEA AND/OR VOMITING Last Admin: 12/03/16 17:20 Dose: 4 mg Pantoprazole Sodium (Protonix -) 40 mg PO DAILY [facility] Last Admin: 12/06/16 11:07 Dose: Not Given Sodium Bicarbonate (Sodium Bicarbonate -) 650 mg PO TID [facility] Last Admin: 12/06/16 06:45 Dose: Not Given - Objective Vital Signs: Vital Signs Temperature 97.5 F L 12/06/16 15:01 Pulse Rate 66 12/06/16 15:01 Respiratory Rate 18 12/06/16 15:01 Blood Pressure 146/82 12/06/16 10:00 O2 Sat by Pulse Oximetry (%) 99 12/06/16 09:00 Constitutional: Yes: No Distress Cardiovascular: Yes: S1, S2 Respiratory: Yes: CTA Bilaterally Gastrointestinal: Yes: Soft. No: Tenderness, Rebound Edema: No Labs: CBC, BMP 12/06/16 08:30 12/06/16 08:30 INR, PTT INR 1.27 (0.82-1.09) H 11/28/16 15:25 Assessment/Plan Impression CKD stable Hypokalemia with some loose stools and hypomagnesemia Failure to thrive UTI Cervical cancer Dehydration Plan Replacing K Will give the magnesium IV Repeat labs with another magnesium level in the am Dr Neely
[2016-12-06] MEDS: NYSTATIN POWDER 100,000 UNITS/GM - 15 GM TOPICAL POWDER TP SCH ×2 (18:24→21:56)
[2016-12-07] MEDS: PIPERACILLIN/TAZOB 3.375 GM 50 ML IVPB SCH ×2 (01:38→09:43)
[2016-12-07] MEDS: HEPARIN NA (PORCINE) 5,000 UNITS/ML 1ML VIAL SQ SCH ×2 (05:39→16:23)
[2016-12-07] MEDS: SODIUM BICARBONATE 650 MG TABLET PO SCH ×2 (05:39→16:24)
[2016-12-07 08:24] LABS: MAGNESIUM 1.8 mg/dL (1.8-2.4)
[2016-12-07] MEDS ORDERED: POTASSIUM CHLORIDE 40 MEQ/30 ML UNIT DOSE CUP PO ONE (09:00)
[2016-12-07] MEDS ORDERED: KCL 10 MEQ IVPB 100 ML IVPB SCH (09:15)
[2016-12-07] MEDS: AMINO ACIDS/PROTEIN HYDROLYS SUGAR-FREE 30 ML PACKET PO SCH ×2 (09:42→17:39)
[2016-12-07] MEDS: FOLIC ACID 1 MG TABLET (FP) PO SCH (09:42)
[2016-12-07] MEDS: FERROUS SO4 325 MG TABLET (FP) PO SCH ×3 (09:42→17:39)
[2016-12-07] MEDS: MULTIVITAMINS (DAILY MVI) TABLET (FP) PO SCH (09:43)
[2016-12-07] MEDS: ASCORBIC ACID 500 MG TABLET (FP) PO SCH (09:43)
[2016-12-07] MEDS: PANTOPRAZOLE 40 MG TABLET (FP) PO SCH (09:43)
[2016-12-07] MEDS: MEGESTROL ACETATE 400 MG/10 ML UNIT DOSE CUP PO SCH (09:43)
[2016-12-07] MEDS: NYSTATIN POWDER 100,000 UNITS/GM - 15 GM TOPICAL POWDER TP SCH (09:44)
[2016-12-07 11:17] VITALS: BP 113/67; PULSE 67; TEMP 97.3
--- NOTE | 2016-12-07 12:31 | PN ---
Physical Exam: SUBJECTIVE: Patient seen and examined. She is awake states she feels better today. Denies any fever, chills generalized weakness or shortness of breath. OBJECTIVE: Vital Signs Period Temp Pulse Resp BP Sys/Dillon Pulse Ox Last 24 Hr 97.3 F-98.2 F 65-70 18-18 113-140/67-76 99 GENERAL: The patient is awake, alert, and fully oriented HEAD: Normal with no signs of trauma. LUNGS: anterior lung ortega with clear lung sounds HEART: Regular rate and rhythm ABDOMEN: Urostomy intact, abdomen soft, non distended EXTREMITIES: No edema noted on lower ext. NEUROLOGICAL: Normal speech, bed bound PSYCH: alert, anxious at times, oriented x 3 SKIN: Urostomy on lower abdomen, Multiple skin breakdown present on admission as follows: As per nursing records: (1) Coccyx with a stage 2 pressure ulcer (1.5cm x 1.5cm) with open skin, min amt of serosang, redness on surrounding area. (2) Left buttock stage 1 pressure ulcer, skin intact with redness, non- blanchable. (3) Right buttocks deep tissue injury (3cm x 2cm) blackened skin noted, intact with redness surrounding area She will need continuos follow up of these wound upon discharge. Laboratory Results - last 24 hr 12/07/16 06:05 Sodium 135 L Potassium 3.2 L Chloride 110 H Carbon Dioxide 17 L Anion Gap 8 BUN 12 Creatinine 2.0 H Random Glucose 91 D Calcium 8.0 L Magnesium 1.8 Active Medications Generic Name Dose Route Start Last Admin Trade Name Freq PRN Reason Stop Dose Admin Amino Acids 30 ml 11/30/16 08:00 12/07/16 09:42 Prostat Sugar-Free Packet - PO Not Given BID@0800,1730 [facility] Ascorbic Acid 500 mg 12/02/16 22:00 12/07/16 09:43 Vitamin C - PO Not Given BID [facility] Ferrous Sulfate 325 mg 12/03/16 08:00 12/07/16 09:42 Feosol - PO Not Given TIDCM [facility] Folic Acid 1 mg 11/30/16 10:00 12/07/16 09:42 Folic Acid - PO Not Given DAILY [facility] Heparin Sodium (Porcine) 5,000 unit 12/01/16 22:00 12/07/16 05:39 Heparin - SQ Not Given TID [facility] Piperacillin Sod/Tazobactam Sod 50 mls @ 100 mls/hr 12/01/16 13:45 12/07/16 09: 43 Zosyn 3.375gm Ivpb (Pre-Docked) IVPB Not Given Q8H-IV [facility] Potassium Chloride/Sodium Chloride 1,000 mls @ 75 mls/hr 12/04/16 14:15 14:54 1/2ns+20meq Kcl IV Not Given ASDIR [facility] Megestrol Acetate 400 mg 12/05/16 14:00 12/07/16 09:43 Megace Oral Suspension - PO Not Given DAILY [facility] Multivitamins/Minerals/Vitamin C 1 tab 12/05/16 14:45 12/07/16 09:43 Tab-A-Vit - PO Not Given DAILY [facility] Nystatin 1 applic 12/06/16 17:00 12/07/16 09:44 Nystop Powder - TP 1 applic BID [facility] Administration Ondansetron HCl 4 mg 12/03/16 11:04 12/03/16 17:20 Zofran Injection IVPUSH 4 mg Q6H PRN Administration NAUSEA AND/OR VOMITING Pantoprazole Sodium 40 mg 11/30/16 10:00 12/07/16 09:43 Protonix - PO Not Given DAILY [facility] Sodium Bicarbonate 650 mg 12/02/16 18:45 12/07/16 05:39 Sodium Bicarbonate - PO Not Given TID [facility] ASSESSMENT/PLAN: This patient is a 71 year old female with a significant past medical history of cervical cancer (s/p TAHBSO, s/p RT and chemotherapy apx 35 years ago). She also has a right sided urostomy. She presented to [facility] ER on 11/28/2016 with generalized weakness after her daughter found her covered in feces and urine at home. As per medical records, pt has a poor appetite with unspecified weight loss. Per documentation she was previously worked up at [facility] for malignancy. On admission she denied fevers, chills, nausea/vomiting, cough, recent travel, chest pain, abdominal pain or dizziness. ID: Urinary Tract Infection/Sepsis secondary to UTI - resolved Assessment/Plan: Lactic acid normalized. 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 Hematology Anemia - most likely chronic but now resolved Assessment/Plan: S/p 2 units of prbc during hospitalization. Anemia resolved. Endocrine: Hyperglycemia on admission, now normal Assessment/Plan: hmga1c 5.0 , not diabetic On Ferrous Sulfate TID GI: Acute Kidney Injury - on CKD stage 4 - improving Assessment/Plan: Monitor BUN/Creatinine, baseline BUN/Creat 16/1.0 Continue hydration, Renal following, F.E.N. Fluids: Tolerating PO intake Electrolytes: Potassium 3.2, pt refusing PO potassium or IV potassium despite stressing the importance of maintaining potassium levels normal. Magnesium 1.8 Prophylaxis: Heparin TID Disposition: Discharge today to rehab. Full Code. Visit type - Emergency Visit Emergency Visit: Yes ED Registration Date: 11/28/16 Care time: The patient presented to the Emergency Department on the above date and was hospitalized for further evaluation of their emergent condition. - New Patient This patient is new to me today: No - Critical Care Critical Care patient: No - Discharge Referral Referred to [facility] Med P.C.: No
--- NOTE | 2016-12-07 12:43 | DS ---
Physical Exam: SUBJECTIVE: Patient seen and examined. She is awake states she feels better today. Denies any fever, chills generalized weakness or shortness of breath. OBJECTIVE: Vital Signs Period Temp Pulse Resp BP Sys/Dillon Pulse Ox Last 24 Hr 97.3 F-98.2 F 65-70 18-18 113-140/67-76 99 PHYSICAL EXAM GENERAL: The patient is awake, alert, and fully oriented HEAD: Normal with no signs of trauma. LUNGS: anterior lung ortega with clear lung sounds HEART: Regular rate and rhythm ABDOMEN: Urostomy intact, abdomen soft, non distended EXTREMITIES: No edema noted on lower ext. NEUROLOGICAL: Normal speech, bed bound PSYCH: alert, anxious at times, oriented x 3 SKIN: Urostomy on lower abdomen, Multiple skin breakdown present on admission as follows: As per nursing records: (1) Coccyx with a stage 2 pressure ulcer (1.5cm x 1.5cm) with open skin, min amt of serosang, redness on surrounding area. (2) Left buttock stage 1 pressure ulcer, skin intact with redness, non- blanchable. (3) Right buttocks deep tissue injury (3cm x 2cm) blackened skin noted, intact with redness surrounding area She will need continuos follow up of these wound upon discharge. LABS Laboratory Results - last 24 hr 12/07/16 06:05 Sodium 135 L Potassium 3.2 L Chloride 110 H Carbon Dioxide 17 L Anion Gap 8 BUN 12 Creatinine 2.0 H Random Glucose 91 D Calcium 8.0 L Magnesium 1.8 HOSPITAL COURSE: Date of Admission:11/28/16 Date of Discharge: 12/07/16 ASSESSMENT/PLAN: This patient is a 71 year old female with a significant past medical history of cervical cancer (s/p TAHBSO, s/p RT and chemotherapy apx 35 years ago). She also has a right sided urostomy. She presented to [facility] ER on 11/28/2016 with generalized weakness after her daughter found her covered in feces and urine at home. As per medical records, pt has a poor appetite with unspecified weight loss. Per documentation she was previously worked up at [facility] for malignancy. On admission she denied fevers, chills, nausea/vomiting, cough, recent travel, chest pain, abdominal pain or dizziness. ID: Urinary Tract Infection/Sepsis secondary to UTI - resolved Assessment/Plan: Lactic acid normalized. 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 Hematology Anemia - most likely chronic but now resolved Assessment/Plan: S/p 2 units of prbc during hospitalization. Anemia resolved. On ferrous sulfate which should continue as outpt. Endocrine: Hyperglycemia on admission, now normal Assessment/Plan: hmga1c 5.0 , not diabetic GI: Acute Kidney Injury - on CKD stage 4 - improving Assessment/Plan: Monitor BUN/Creatinine Continue hydration, Renal following, Disposition: Discharge today to rehab. Full Code. Minutes to complete discharge: 45 Discharge Summary Reason For Visit: DEHYDRATION Current Active Problems Dehydration (Acute) Hyponatremia (Acute) Lactic acidosis (Acute) SIRS (systemic inflammatory response syndrome) (Acute) Condition: Improved - Instructions Diet, Activity, Other Instructions: Please monitor weights and continue the Megace and multivitamins prescribed. Please return to the ER if you experience any of the following: Fever of 101F or greater Body chills General Malaise worsening fatigue Disposition: ASSISTED FACILITY - Home Medications Comprehensive Discharge Medication List: Ambulatory Orders NK [No Known Home Medication] 11/28/16 This patient is new to me today: No Emergency Visit: Yes ED Registration Date: 11/28/16 Care time: The patient presented to the Emergency Department on the above date and was hospitalized for further evaluation of their emergent condition. Critical Care patient: No - Discharge Referral Referred to [facility] Med P.C.: No
--- NOTE | 2016-12-07 14:14 | PN ---
Progress Note, Physician History of Present Illness: patient doing well daughter in room no issues patient is sort of failure to thrive - Current Medication List Current Medications: Active Medications Amino Acids (Prostat Sugar-Free Packet -) 30 ml PO BID@0800,1730 [facility] Last Admin: 12/07/16 09:42 Dose: Not Given Ascorbic Acid (Vitamin C -) 500 mg PO BID [facility] Last Admin: 12/07/16 09:43 Dose: Not Given Ferrous Sulfate (Feosol -) 325 mg PO TIDCM [facility] Last Admin: 12/07/16 13:36 Dose: Not Given Folic Acid (Folic Acid -) 1 mg PO DAILY [facility] Last Admin: 12/07/16 09:42 Dose: Not Given Heparin Sodium (Porcine) (Heparin -) 5,000 unit SQ TID [facility] Last Admin: 12/07/16 05:39 Dose: Not Given Potassium Chloride/Sodium Chloride (1/2ns+20meq Kcl) 1,000 mls @ 75 mls/hr IV ASDIR [facility] Last Admin: 12/06/16 14:54 Dose: Not Given Megestrol Acetate (Megace Oral Suspension -) 400 mg PO DAILY [facility] Last Admin: 12/07/16 09:43 Dose: Not Given Multivitamins/Minerals/Vitamin C (Tab-A-Vit -) 1 tab PO DAILY [facility] Last Admin: 12/07/16 09:43 Dose: Not Given Nystatin (Nystop Powder -) 1 applic TP BID [facility] Last Admin: 12/07/16 09:44 Dose: 1 applic Ondansetron HCl (Zofran Injection) 4 mg IVPUSH Q6H PRN PRN Reason: NAUSEA AND/OR VOMITING Last Admin: 12/03/16 17:20 Dose: 4 mg Pantoprazole Sodium (Protonix -) 40 mg PO DAILY [facility] Last Admin: 12/07/16 09:43 Dose: Not Given Sodium Bicarbonate (Sodium Bicarbonate -) 650 mg PO TID [facility] Last Admin: 12/07/16 05:39 Dose: Not Given - Objective Vital Signs: Vital Signs Temperature 97.3 F L 12/07/16 10:00 Pulse Rate 67 12/07/16 10:00 Respiratory Rate 18 12/07/16 10:00 Blood Pressure 113/67 12/07/16 10:00 O2 Sat by Pulse Oximetry (%) 99 12/06/16 21:00 Constitutional: Yes: No Distress, Calm Cardiovascular: Yes: Regular Rate and Rhythm Respiratory: Yes: Regular, CTA Bilaterally Gastrointestinal: Yes: Normal Bowel Sounds, Soft Musculoskeletal: Yes: Other Extremities: Yes: Other Wound/Incision: Yes: Other (decubitus ulcers) Neurological: Yes: Alert, Oriented Psychiatric: Yes: Alert Labs: CBC, BMP 12/06/16 08:30 12/07/16 06:05 INR, PTT INR 1.27 (0.82-1.09) H 11/28/16 15:25 Assessment/Plan 71-year-old female, with a significant past medical history of htn, vitamin b12 deficiency, hlp, cervical cancer (status post TAHBSO, with radiation and chemotherapy approximately [address] 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 She was transferred from [place] to [place] ICU for higher LOC. 1. r/o uti 2. Sepsis 3. Failure to thrive 4. Anemia 5. Thrombocytosis 6. Hypoalbuminemia 7. Weakness 8. Hyperglycemia 9. NANY on CKD 10. Hyponatremia l 11. hx htn lactic acidosis bacteremia plan stopped all abx care of decubitus ulcers
--- NOTE | 2016-12-07 16:17 | PN ---
Progress Note, Physician History of Present Illness: Pt seen and examined at bedside. She is awake and alert. She is eager to go to rehab. - Current Medication List Current Medications: Active Medications Amino Acids (Prostat Sugar-Free Packet -) 30 ml PO BID@0800,1730 [facility] Last Admin: 12/07/16 09:42 Dose: Not Given Ascorbic Acid (Vitamin C -) 500 mg PO BID [facility] Last Admin: 12/07/16 09:43 Dose: Not Given Ferrous Sulfate (Feosol -) 325 mg PO TIDCM [facility] Last Admin: 12/07/16 13:36 Dose: Not Given Folic Acid (Folic Acid -) 1 mg PO DAILY [facility] Last Admin: 12/07/16 09:42 Dose: Not Given Heparin Sodium (Porcine) (Heparin -) 5,000 unit SQ TID [facility] Last Admin: 12/07/16 05:39 Dose: Not Given Potassium Chloride/Sodium Chloride (1/2ns+20meq Kcl) 1,000 mls @ 75 mls/hr IV ASDIR [facility] Last Admin: 12/06/16 14:54 Dose: Not Given Megestrol Acetate (Megace Oral Suspension -) 400 mg PO DAILY [facility] Last Admin: 12/07/16 09:43 Dose: Not Given Multivitamins/Minerals/Vitamin C (Tab-A-Vit -) 1 tab PO DAILY [facility] Last Admin: 12/07/16 09:43 Dose: Not Given Nystatin (Nystop Powder -) 1 applic TP BID [facility] Last Admin: 12/07/16 09:44 Dose: 1 applic Ondansetron HCl (Zofran Injection) 4 mg IVPUSH Q6H PRN PRN Reason: NAUSEA AND/OR VOMITING Last Admin: 12/03/16 17:20 Dose: 4 mg Pantoprazole Sodium (Protonix -) 40 mg PO DAILY [facility] Last Admin: 12/07/16 09:43 Dose: Not Given Sodium Bicarbonate (Sodium Bicarbonate -) 650 mg PO TID [facility] Last Admin: 12/07/16 05:39 Dose: Not Given - Objective Vital Signs: Vital Signs Temperature 97.3 F L 12/07/16 10:00 Pulse Rate 67 12/07/16 10:00 Respiratory Rate 18 12/07/16 10:00 Blood Pressure 113/67 12/07/16 10:00 O2 Sat by Pulse Oximetry (%) 99 12/06/16 21:00 Constitutional: Yes: Calm Eyes: Yes: Conjunctiva Clear Cardiovascular: Yes: S1, S2 Respiratory: Yes: CTA Bilaterally Gastrointestinal: Yes: Soft Musculoskeletal: Yes: Muscle Weakness Edema: No Neurological: Yes: Oriented Psychiatric: Yes: Oriented Labs: CBC, BMP 12/06/16 08:30 12/07/16 06:05 INR, PTT INR 1.27 (0.82-1.09) H 11/28/16 15:25 Assessment/Plan Current Medications Generic Name Dose Route Start Last Admin Trade Name Freq PRN Reason Stop Dose Admin Amino Acids 30 ml 11/30/16 08:00 12/07/16 09:42 Prostat Sugar-Free Packet - PO Not Given BID@0800,1730 [facility] Ascorbic Acid 500 mg 12/02/16 22:00 12/07/16 09:43 Vitamin C - PO Not Given BID [facility] Ferrous Sulfate 325 mg 12/03/16 08:00 12/07/16 13:36 Feosol - PO Not Given TIDCM [facility] Folic Acid 1 mg 11/30/16 10:00 12/07/16 09:42 Folic Acid - PO Not Given DAILY [facility] Heparin Sodium (Porcine) 5,000 unit 12/01/16 22:00 12/07/16 05:39 Heparin - SQ Not Given TID [facility] Potassium Chloride/Sodium Chloride 1,000 mls @ 75 mls/hr 12/04/16 14:15 14:54 1/2ns+20meq Kcl IV Not Given ASDIR [facility] Megestrol Acetate 400 mg 12/05/16 14:00 12/07/16 09:43 Megace Oral Suspension - PO Not Given DAILY [facility] Multivitamins/Minerals/Vitamin C 1 tab 12/05/16 14:45 12/07/16 09:43 Tab-A-Vit - PO Not Given DAILY [facility] Nystatin 1 applic 12/06/16 17:00 12/07/16 09:44 Nystop Powder - TP 1 applic BID MIKE Administration Ondansetron HCl 4 mg 12/03/16 11:04 12/03/16 17:20 Zofran Injection IVPUSH 4 mg Q6H PRN Administration NAUSEA AND/OR VOMITING Pantoprazole Sodium 40 mg 11/30/16 10:00 12/07/16 09:43 Protonix - PO Not Given DAILY [facility] Sodium Bicarbonate 650 mg 12/02/16 18:45 12/07/16 05:39 Sodium Bicarbonate - PO Not Given TID [facility] Laboratory Tests 12/07/16 06:05 Potassium 3.2 L Magnesium 1.8 Impression 1. CKD 2. failure to thrive 3. UTI 4. lactic acidosis 5. cervical cancer 6. dehydration 7. metabolic acidosis 8. hypokalemia 9. hypomagnesemia Plan - will stop hypotonic fluids - observe off of fluids - possible discharge today - discussed with medical team - replace potassium - encourage PO intake - cont PO bicarb Dr Campos
== END 2016-12-07 19:58 | DRG 871 ==
LOC: FER 13:47 → JICU 20:30 → J7W 11-29 22:41
PROVIDERS: ADMIT Internal Medicine; ATTEND Nurse Practitioner Family
PROC: 30233N1 Transfusion of Nonautologous Red Blood Cells into Peripheral Vein, Percutaneous Approach (ICD-10-PCS; principal; 2016-12-01)
DX: A41.9 Sepsis, unspecified organism (principal); E43 Unspecified severe protein-calorie malnutrition; R64 Cachexia; Z68.1 Body mass index [BMI] 19.9 or less, adult; N18.4 Chronic kidney disease, stage 4 (severe); N17.9 Acute kidney failure, unspecified; N39.0 Urinary tract infection, site not specified; D62 Acute posthemorrhagic anemia; E86.0 Dehydration; I12.9 Hypertensive chronic kidney disease with stage 1 through stage 4 chronic kidney disease, or unspecified chronic kidney disease; E83.42 Hypomagnesemia; E87.6 Hypokalemia; Z85.41 Personal history of malignant neoplasm of cervix uteri; E88.09 Other disorders of plasma-protein metabolism, not elsewhere classified; R62.7 Adult failure to thrive; B96.4 Proteus (mirabilis) (morganii) as the cause of diseases classified elsewhere; L89.152 Pressure ulcer of sacral region, stage 2; L89.321 Pressure ulcer of left buttock, stage 1; L89.312 Pressure ulcer of right buttock, stage 2; R73.9 Hyperglycemia, unspecified; D47.3 Essential (hemorrhagic) thrombocythemia; Z66 Do not resuscitate; Z93.2 Ileostomy status; R19.7 Diarrhea, unspecified
CPT/HCPCS: 36415; 36430; 71010-TC; 80048; 80053; 81003; 81015; 82607; 82728; 82746; 83036; 83540; 83550; 83605; 83735; 84100; 84132; 84443; 85025; 85610; 85730; 86850; 86900; 86901; 86922; 87040; 87045; 87046; 87086; 87177; 87186; 87207; 87209; 87254; 87324; 87328; 87329; 87449; 87804; 93005; 97116-GP; 97163-GP; 99285-25; G0480; J1644; J3480; P9058